=== PATIENT | male | born 1945 | race Caucasian/White ===

== ENCOUNTER 2018-02-03 10:13 | Day surgery (SDC) | payer MEDICARE ==
[~2018-02-03 10:13] MED LIST: Buffered Lidocaine 0.9% SYRIN* 5 ML/SYR SYRINGE INTRADERM ONE
[2018-02-03] MEDS ORDERED: ceFAZolin 2 GM PREMIX (*) 2 GM/50 ML BAG IVPB ONE (10:41)
[2018-02-03] MEDS ORDERED: Bupivacaine 0.5% SDV PF* 30ML VIAL ONE (14:24)
[2018-02-03] MEDS ORDERED: Lidocaine 1% MPF wEPI 200,000* 30 ML SDV ONE (14:24)
[2018-02-03] MEDS ORDERED: fentaNYL* 50 MCG/ML 2 ML VIAL (100 MCG VIAL) ONE (14:55)
[2018-02-03] MEDS ORDERED: Midazolam* 1 MG/ML 5 ML VIAL (5 MG) ONE (14:56)
[2018-02-03] MEDS ORDERED: Naloxone* 0.4 MG/ML 1 ML VIAL IV PRN (15:13)
[2018-02-03] MEDS ORDERED: oxyCODONE TAB* 5 MG TAB PO PRN (15:13)
[2018-02-03] MEDS ORDERED: Acetaminophen TAB* 325 MG PO PRN (15:13)
[2018-02-03] MEDS ORDERED: Propofol* 10 MG/ML 20 ML BTL IV PUSH ONE (15:17)
[2018-02-03] MEDS ORDERED: Ibuprofen TAB* 400 MG PO PRN (15:57)
[2018-02-03 16:53] VITALS: BP 150/83
--- NOTE | 2018-02-05 21:46 | OP ---
CC: Galina Seay MD * DATE OF OPERATION: 02/03/18 - SDS DATE OF : 45 SURGEON: Ricardo Palafox MD HAND CANDY DIPPER: CHIKA Lay student. ANESTHESIOLOGIST: Kash Anthony MD ANESTHESIA: Local MAC. PRE-OP DIAGNOSIS: Right inguinal hernia. POST-OP DIAGNOSIS: Right inguinal hernia. OPERATIVE PROCEDURE: Open repair, right inguinal hernia with mesh. ESTIMATED BLOOD LOSS: Minimal. IV FLUIDS: Crystalloids. SPECIMEN: None. DRAINS: None. COMPLICATIONS: None. COUNTS: The instrument, needle, and sponge counts were correct. DESCRIPTION OF PROCEDURE: The patient was brought to the operating room and placed on the table supine. Sequential compression devices were placed on both lower extremities. Intravenous sedation was administered. His right groin was prepped and draped in the usual sterile fashion and a time-out was performed. Local anesthetic was infiltrated as a field block in the right groin and an oblique incision was created approximately 5-cm long. Subcutaneous tissues were divided with cautery, crossing veins were divided between clamps and ligated with absorbable ties. External oblique aponeurosis was identified and additional anesthetic infiltrated beneath this. The aponeurosis was opened along the line of its fibers through the superficial ring. The external oblique aponeurosis was reflected back upon itself and the underlying ilioinguinal nerve was identified and mobilized and preserved in a medial direction. The contents of the inguinal canal were isolated with a quarter- inch Mayur drain at the level of the pubic tubercle. There was a large lipoma of the cord as well as indirect inguinal hernia sac identified. The lipoma on the cord was dissected free. It was transected after clamping and then ligated with 2-0 suture ligature. The cord was dissected free from the sac. The sac was twisted upon itself, ligated with 2-0 Vicryl suture ligature, and allowed to retract beneath the deep ring. The repair was then performed with the Medtronic ProGrip mesh for the open right inguinal hernia. The mesh was cut to an appropriate size and placed to cover the entire floor of the canal with the locking strips positioned loosely around the cord structures. Subsequently, the ilioinguinal nerve was returned to its anatomic position and the external oblique aponeurosis was then closed with 2-0 Vicryl. Herson's was closed with 3-0 Vicryl in interrupted fashion. The skin was closed with 4-0 Monocryl in a running subcuticular fashion. The Steri-Strips and dressing were applied. The patient tolerated this procedure well and was transferred to Recovery in stable condition. [id number]/[facility] #: [id number] MTDD
== END 2018-02-03 17:06 | disposition home or self-care (01) ==
LOC: OR 10:13
PROVIDERS: ATTEND Surgery
DX: K40.90 Unilateral inguinal hernia, without obstruction or gangrene, not specified as recurrent (principal); J45.909 Unspecified asthma, uncomplicated; Z85.46 Personal history of malignant neoplasm of prostate; K21.9 Gastro-esophageal reflux disease without esophagitis; F41.9 Anxiety disorder, unspecified; Z87.891 Personal history of nicotine dependence
CPT/HCPCS: C1781; J0690; J2001; J2250; J2704; J3010

== ENCOUNTER → 2018-05-18 19:36 | Emergency (ER) | payer MEDICARE ==
[~2018-05-18 19:36] MED LIST changes: -Buffered Lidocaine 0.9% SYRIN* 5 ML/SYR SYRINGE INTRADERM ONE; +LORazepam INJ* 2 MG/ML 1 ML VIAL IV PUSH ONE; +Labetalol IV* 5 MG/ML 20 ML VIAL IV PUSH ONE
--- OUTSIDE RECORDS SUMMARY | 2018-05-18 19:51 | XMS REPORT ---
:1945 External Reference #:[id number] Author Organization [facility] Address [address] [place] [address] [place] [address] Phone [phone] Care Team Providers Name Role Phone Hima Medeiros MD Care Team Information Clay Temperer Unavailable Galina Seay MD Primary Care Physician Unavailable Payers Type Date Identification Numbers Payment Provider Subscriber Medicare Primary Policy Number: [id number] Medicare Sung Thompson PayID: [id number] [address] [place] [address] [facility] Policy Number: [id number] [facility] Sung Thompson PayID: [id number] [address] [place] [address] Problems Description No Information Family History Date Family Member(s) Problem(s) Comments First Sister Chronic Obstructive Pulmonary Disease (COPD) Smoker Social History Type Date Description Comments Marital Status Lives With Lives With 1 cat Occupation 1999 Retired Occupation [employer] Cigarette Use Former Cigarette Smoker Cigarette Use Former cigar smoker 2-3 per day. 10 years ETOH Use Denies alcohol use Smoking Patient is a former smoker Recreational Drug Use Denies Drug Use Smoking Secondhand smoke exposure As a child Daily Caffeine Decaff coffee 3-4x per week Daily Caffeine consumes chocolate occasionally Exercise Type/Frequency Exercises regularly Exercise Type/Frequency Walks daily Allergies, Adverse Reactions, Alerts Date Description Reaction Status Severity Comments 01/27/2018 Penicillin active hives 01/27/2018 Codeine active hyperactivity 01/27/2018 Prednisone active irritability and anger 01/27/2018 Flovent active hyperactivity 02/18/2018 Steroids Nervous and mind active Per pt, 2 different racing reactions Medications Medication Date Status Form Strength Qnty SIG Indications Ordering Provider Daxlukast // Active Tablets 10mg 1 by mouth Unknown Sodium 0000 every day Proair / Active Aerosol 108(90Bas 2 puffs by Unknown Respiclick 0000 e) mouth every mcg/Act 4-6 hours as needed Gabapentin / Active Capsules 100mg 1 capsule Unknown 0000 by mouth at night Vitamin D3 / Active Tablets 1000Unit 1 by mouth Unknown 0000 every day Sertraline HCL / Active Tablets 100mg 1 by mouth Unknown 0000 every day Multivitamin / Active Tablets 1 by mouth Unknown Adults 0000 every day Vitamin C / Active Tablets 500mg 1 by mouth Unknown 0000 every day Fish Oil Extra / Active Capsules 1200mg daily Unknown Strength 0000 Stool Softener / Active Tablets 100mg take one Unknown 0000 tab by mouth as needed Metamucil Free & / Active Powder 43% 1 Unknown Natural 0000 tablespoon twice a day mixed w/ water Hydrocortisone / Active Ointment 0.2% apply to Unknown Valerate 0000 affected area(s) once daily as needed Pantoprazole / Active Tablets DR 40mg 1 by mouth Unknown Sodium 0000 two times day Simvastatin / Active Tablets 20mg 1 by mouth Blegen, 0000 one time Galina, per day Nystatin / Active Cream [id number] Apply Blegen, 0000 t/GM topically Galina, as needed Econazole / Active Cream 1% topical Unknown Nitrate 0000 twice a day as needed Spiriva Respimat / Active Aerosol 1.25mcg/A daily Unknown [address] ct Spiriva Respimat / Hx Aerosol 1.25mcg/A once daily Unknown 0000 - ct 2017 Vital Signs Date Vital Result Comment 04/20/2018 Height 69.5 inches 5'9.50" Weight 182.00 lb Heart Rate 62 /min BP Systolic Sitting 144 mmHg BP Diastolic Sitting 84 mmHg Respiratory Rate 18 /min O2 % BldC Oximetry 97 % on Ra BMI (Body Mass Index) 26.5 kg/m2 02/18/2018 Height 69.5 inches 5'9.50" Weight 177.38 lb Heart Rate 64 /min BP Systolic Sitting 154 mmHg Lue reg cuff BP Diastolic Sitting 78 mmHg Lue reg cuff Respiratory Rate 14 /min O2 % BldC Oximetry 97 % On Ra BMI (Body Mass Index) 25.8 kg/m2 Neck Circumference in inches 15.5 02/11/2018 Heart Rate 62 /min Respiratory Rate 16 /min Body Temperature 97.0 F 01/29/2018 Height 69.5 inches 5'9.50" Weight 180.00 lb Heart Rate 54 /min BP Systolic Sitting 142 mmHg BP Diastolic Sitting 80 mmHg Respiratory Rate 16 /min Body Temperature 97.8 F BMI (Body Mass Index) 26.2 kg/m2 Results Description No Information Procedures Date CPT Code Description Status 04/02/2018 63141 Diffusing Capacity Completed 04/02/2018 99863 Plethysmography Determination Lung Volumes & Per Airway Completed Resist 04/02/2018 79115 Pulmonary Function><Bronchodil Completed 02/03/2018 32802 Repair Hernia Inguinal > 5Yrs, Reducible Completed 05/14/2007 36352 EKG, Interpretation Only Completed Encounters Type Date Location Provider CPT E/M Dx Office Visit 04/20/2018 8:30a [facility] Viktoriya Lewis, N.P. [address] R05 [facility] Office Visit 02/18/2018 11:00a [facility] [place] [address] R[facility] J98.4 Office Visit 01/29/2018 11:00a [facility] [place], [address] K40.90 [facility] FACS Office Visit 08/29/2014 10:21a [facility], Ashleigh Brandt, [address] 578.9 Hospitalists M.D. 272.4 530.81 285.1 Office Visit 08/28/2014 10:21a [facility],stephani Brandt, [address] 578.9 Hospitalists M.D. 272.4 530.81 285.1 Office Visit 08/27/2014 10:20a [facility],stephani Brandt, 618[address] 578.9 Hospitalists M.D. 272.4 285.1 530.81 Office Visit 08/26/2014 10:19a [facility], [address] 578.9 Assoc, Hospitalists M.DAyush 272.4 530.81 Plan of Care Future Appointment(s):10/21/2018 9:00 am - Evelyn Altamirano MD at [facility]04/20/2018 - Viktoriya Lewis, N.P.R05 CoughFollow up:6 mo f/u LKRecommendations:Try Bevespi - samples given. STOP Spiriva Call in 2 weeks if it makes a difference
--- NOTE | 2018-05-18 21:10 | ED ---
Hypertension - HPI Summary HPI Summary: A 73 y/o male FRANCISCO presents to ED c/o hypertension. In the ED room, the patient has a pulse of 67 BPM, O2 saturation of 97% and blood pressure of 192/86. As per triage, "Pt reports he noticed his BP getting "higher and higher today." Pt denies any symptoms. Pt reports he was told by his PCP to keep track of his BP, since it had been steadily rising over the last year, and when he took it today , "the top number was over 180 and the bottom number was over 100, so my called the ambulance". According to the patient, last year he has been experiencing high blood pressure between 135-140 systolic for a very long time in which he sees his PCP in [place], [place]. His PCP recommended that the patient watch his BP, however, for the past 3-weeks he has not been checking as frequently/often. He noted that after lunch today, it was approximately 160/90 ( with it being peaking around 189/120) which he has never seen before. He denies any headache, CP, nausea, vomiting or ear pain. Patient is on several medicatinos. Patient is otherwise healthy, everything is going good in his life. Patient lives with . Patient son and [id number] resides nearby. - History of Current Complaint Stated Complaint: HIGH BLOOD PRESSURE Time Seen by Provider: 05/18/18 20:17 Hx Obtained From: Patient Onset/Duration: Started Hours Ago, Still Present Timing: Constant Aggravating Factor(s): Nothing Alleviating Factor(s): Nothing Associated Signs & Symptoms: Negative - Allergies/Home Medications Allergies/Adverse Reactions: Allergies Allergy/AdvReac Type Severity Reaction Status Date / Time codeine Allergy Insomnia Verified 05/18/18 20:23 Penicillins Allergy Rash Verified 05/18/18 20:23 "anti-nausea med" Allergy See Comment Uncoded 05/18/18 20:23 "steroid inhaler" Allergy See Comment Uncoded 05/18/18 20:23 steriods Allergy See Comment Uncoded 05/18/18 20:23 PMH/Surg Hx/FS Hx/Imm Hx Endocrine/Hematology History: Denies: Hx Diabetes Cardiovascular History: Reports: Hx Hypercholesterolemia, Hx Hypertension - being monitored by PCP, no meds yet, Other Cardiovascular Problems/Disorders - hypercholesterolemia Denies: Hx Pacemaker/ICD Respiratory History: Reports: Hx Asthma, Other Respiratory Problems/Disorders - pneumonia 1.5 yrs ago GI History: Reports: Hx Gastroesophageal Reflux Disease, Other GI Disorders - hx duodenal polyp removed, hx gi bleed, current inguinal hernia History: Reports: Other Problems/Disorders - prostate cancer Denies: Hx Dialysis, Hx Renal Disease Musculoskeletal History: Reports: Hx Arthritis - hands Sensory History: Reports: Hx Contacts or Glasses - glasses Denies: Hx Hearing Aid Opthamlomology History: Reports: Hx Contacts or Glasses - glasses Neurological History: Reports: 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 prostatectomy 2006 - [facility] [place]. drained abscess in throat [place] in [employer] - [facility] Anesthesia Reactions: No - Immunization History Date of Influenza Vaccine: 05/2016 Immunizations Up to Date: Yes Infectious Disease History: No Infectious Disease History: Denies: Traveled Outside the [place] in Last 30 Days - Family History Known Family History: Negative: Respiratory Disease - Social History Alcohol Use: None Substance Use Type: Reports: None Hx Tobacco Use: Yes Smoking Status (MU): Former Smoker Type: Cigars Amount Used/How Often: 3 cigars per day for 10 years Review of Systems Negative: Fever Negative: Ear Ache Positive: Other - POSITIVE: HTN. Negative: Chest Pain Negative: Vomiting, Nausea Negative: Headache All Other Systems Reviewed And Are Negative: Yes Physical Exam - Summary Physical Exam Summary: VITAL SIGNS: Reviewed. GENERAL: Patient is a well-developed and nourished male who is lying comfortable in the stretcher. Patient is not in any acute respiratory distress. Normal exam. HEAD AND FACE: No signs of trauma. No ecchymosis, hematomas or skull depressions. No sinus tenderness. EYES: PERRLA, EOMI x 2, No injected conjunctiva, no nystagmus. EARS: Hearing grossly intact. Ear canals and tympanic membranes are within normal limits. MOUTH: Oropharynx within normal limits. NECK: Supple, trachea is midline, no adenopathy, no JVD, no carotid bruit, no c- spine tenderness, neck with full ROM. CHEST: Symmetric, no tenderness at palpation LUNGS: Clear to auscultation bilaterally. No wheezing or crackles. CVS: Regular rate and rhythm, S1 and S2 present, no murmurs or gallops appreciated. ABDOMEN: Soft, non-tender. No signs of distention. No rebound no guarding, and no masses palpated. Bowel sounds are normal. EXTREMITIES: FROM in all major joints, no edema, no cyanosis or clubbing. NEURO: Alert and oriented x 3. No acute neurological deficits. Speech is normal and follows commands. SKIN: Dry and warm Triage Information Reviewed: Yes Vital Signs On Initial Exam: Initial Vitals Pulse Resp BP Pulse Ox 66 18 194/82 98 05/18/18 20:15 05/18/18 20:15 05/18/18 20:15 05/18/18 20:15 Vital Signs Reviewed: Yes Diagnostics - Vital Signs Vital Signs Temp Pulse Resp BP Pulse Ox 05/18/18 20:45 66 18 153/78 97 05/18/18 20:42 16 05/18/18 20:19 98.0 F 65 16 192/86 98 05/18/18 20:15 66 18 194/82 98 - Laboratory Result Diagrams: 05/18/18 21:19 05/18/18 21:19 Lab Statement: Any lab studies that have been ordered have been reviewed, and results considered in the medical decision making process. Hypertension Course/Dx - Course Course Of Treatment: A 73 y/o male FRANCISCO presents to ED c/o hypertension. In the ED room, the patient has a pulse of 67 BPM, O2 saturation of 97% and blood pressure of 192/86. Blood work was done. In the ED course, the patient recieved Trandate and Ativan. Patient will be discharged with a diagnosis of hypertension. Patient will be sent home with Lisinopril. Patient is to follow up with PCP in 1-2 days. Patient is agreeable with this plan. - Diagnoses Provider Diagnoses: HTN (hypertension) Discharge - Sign-Out/Discharge Documenting (check all that apply): Patient Departure - DISCHARGE - Discharge Plan Condition: Stable Disposition: HOME Prescriptions: Lisinopril 5 mg PO DAILY #30 tablet Patient Education Materials: Hypertension (ED) Referrals: Galina Seay MD [Primary Care Provider] - 2 Days Additional Instructions: FOLLOW UP WITH PRIMARY CARE PHYSICIAN IN 1-2 DAYS. TAKE MEDICATION PRESCRIBED. RETURN TO ED FOR ANY NEW OR WORSENING SYMPTOMS. - Attestation Statements Document Initiated by Scribe: Yes Documenting Scribe: Ralph Santana Provider For Whom Scribe is Documenting (Include Credential): Sowmya Suresh MD Scribe Attestation: Ralph Perez, scribed for Sowmya Suresh MD on 05/18/18 at 0302.
[2018-05-18 21:31] LABS: ABS Basophils 0 10^3/ul (0-0.2); ABS Eosinophils 0 10^3/ul (0-0.6); ABS Lymphocytes 0.6 10^3/ul (1.0-4.8); ABS Monocytes 0.5 10^3/ul (0-0.8); ABS Neutrophils 4.5 10^3/ul (1.5-7.7); ABS Nucleated RBC 0 10^3/ul; Eosinophil % 0.4 % (0-6); Hematocrit 38 % (42-52); Hemoglobin 13.4 g/dl (14.0-18.0); Lymphocyte % 11.4 % (25-47); Mean Corpuscular HGB Conc 35 g/dl (31-36); Mean Corpuscular Hemoglobin 31 pg (27-31); Mean Corpuscular Volume 87 fL (80-94); Mean Platelet Volume 8.5 um3 (7.4-10.4); Nucleated Red Blood Cells % 0; Platelet Count 164 10^3/ul (150-450); Red Blood Count 4.35 10^6/ul (4.00-5.40); Red Cell Distribution Width 14 % (10.5-15); White Blood Count 5.6 10^3/ul (3.5-10.8)
[2018-05-18 21:48] LABS: EGFR Non-African American 88.4 (>60)
[2018-05-18 22:14] VITALS: BP 149/78
== END | disposition home or self-care (01) ==
LOC: ED 19:36
DX: I10 Essential (primary) hypertension (principal); Z87.891 Personal history of nicotine dependence; Z88.5 Allergy status to narcotic agent; Z88.2 Allergy status to sulfonamides; Z88.8 Allergy status to other drugs, medicaments and biological substances
CPT/HCPCS: 36415; 80053; 84439; 84443; 85025; 96374; 96375; 99283; J2060

== ENCOUNTER 2018-09-14 20:09 | Observation (INO) | payer MEDICARE ==
[2018-09-14] MEDS ORDERED: Labetalol IV* 5 MG/ML 20 ML VIAL IV PUSH ONE (20:31)
--- NOTE | 2018-09-14 20:37 | ED ---
Hypertension - HPI Summary HPI Summary: This patient is a 73 year old M brought in by EMS presenting to [facility] accompanied by his with a chief complaint of hypertension one hour [employer]. The patient states he felt dizzy so he checked his blood pressure and he had a high systolic. He told his , who states he was acting spaceyand they called EMS. When in the patient room the he had difficulty speaking to the nurse , however when the ED Provider came in he improved and was speaking normally. He states he sometimes has difficulty expressing he thoughts but did not feel that way during the visit, and that he was only dizzy. The patient states he has no other cardiac Hx besides HTN. He has a Hx of prostate and throat cancer. - History of Current Complaint Stated Complaint: HIGH BLOOD PRESSURE Time Seen by Provider: 09/14/18 20:12 Hx Obtained From: Patient Onset/Duration: Started Hours Ago Associated Signs & Symptoms: Dizziness - Risk Factors Cardiac Risk Factors: Hypertension, Family History - Allergies/Home Medications Allergies/Adverse Reactions: Allergies Allergy/AdvReac Type Severity Reaction Status Date / Time codeine Allergy Insomnia Verified 05/18/18 20:23 Penicillins Allergy Rash Verified 05/18/18 20:23 "anti-nausea med" Allergy See Comment Uncoded 05/18/18 20:23 "steroid inhaler" Allergy See Comment Uncoded 05/18/18 20:23 steriods Allergy See Comment Uncoded 05/18/18 20:23 Home Medications: Home Medications Cholecalciferol (Vitamin D3) [Vitamin D3] 1,000 unit PO DAILY 09/14/18 [History Confirmed 09/14/18] Montelukast Sodium TAB* [Singulair TAB*] 10 mg PO DAILY 09/14/18 [History Confirmed 09/14/18] Psyllium KINSEY* [Metamucil KINSEY*] 1 pkt PO DAILY 09/14/18 [History Confirmed ] PMH/Surg Hx/FS Hx/Imm Hx Endocrine/Hematology History: Denies: Hx Diabetes Cardiovascular History: Reports: Hx Hypercholesterolemia, Hx Hypertension - being monitored by PCP, no meds yet, Other Cardiovascular Problems/Disorders - hypercholesterolemia Denies: Hx Pacemaker/ICD Respiratory History: Reports: Hx Asthma, Other Respiratory Problems/Disorders - pneumonia 1.5 yrs ago GI History: Reports: Hx Gastroesophageal Reflux Disease, Other GI Disorders - hx duodenal polyp removed, hx gi bleed, current inguinal hernia History: Reports: Other Problems/Disorders - prostate cancer Denies: Hx Dialysis, Hx Renal Disease Musculoskeletal History: Reports: Hx Arthritis - hands Sensory History: Reports: Hx Contacts or Glasses - glasses Denies: Hx Hearing Aid Opthamlomology History: Reports: Hx Contacts or Glasses - glasses Neurological History: Reports: 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 prostatectomy 2006 - [facility] [place]. drained abscess in throat while in [employer] [place] Hx Anesthesia Reactions: No - Immunization History Date of Influenza Vaccine: 05/2016 Infectious Disease History: No Infectious Disease History: Denies: Traveled Outside the US in Last 30 Days - Family History Known Family History: Positive: Cardiac Disease Negative: Respiratory Disease - Social History Alcohol Use: None Substance Use Type: Reports: None Hx Tobacco Use: Yes Smoking Status (MU): Former Smoker Type: Cigars Amount Used/How Often: 3 cigars per day for 10 years Review of Systems Negative: Fever Positive: Other - HTN Neurological: Other - Dizziness All Other Systems Reviewed And Are Negative: Yes Physical Exam - Summary Physical Exam Summary: VITAL SIGNS: Reviewed. GENERAL: Patient is a well-developed and nourished MALE who is lying comfortable in the stretcher. Patient is not in any acute respiratory distress. HEAD AND FACE: No signs of trauma. No ecchymosis, hematomas or skull depressions. No sinus tenderness. EYES: PERRLA, EOMI x 2, No injected conjunctiva, no nystagmus. EARS: Hearing grossly intact. Ear canals and tympanic membranes are within normal limits. MOUTH: Oropharynx within normal limits. NECK: Supple, trachea is midline, no adenopathy, no JVD, no carotid bruit, no c- spine tenderness, neck with full ROM. CHEST: Symmetric, no tenderness at palpation LUNGS: Clear to auscultation bilaterally. No wheezing or crackles. CVS: Regular rate and rhythm, S1 and S2 present, no murmurs or gallops appreciated. ABDOMEN: Soft, non-tender. No signs of distention. No rebound no guarding, and no masses palpated. Bowel sounds are normal. EXTREMITIES: FROM in all major joints, no edema, no cyanosis or clubbing. NEURO: Alert and oriented x 3. No acute neurological deficits. Speech is normal and follows commands. SKIN: Dry and warm Triage Information Reviewed: Yes Vital Signs On Initial Exam: Initial Vitals Temp Pulse Resp BP Pulse Ox 98.3 F 78 18 201/88 98 09/14/18 20:11 09/14/18 20:11 09/14/18 20:11 09/14/18 20:11 09/14/18 20:11 Vital Signs Reviewed: Yes Diagnostics - Vital Signs Vital Signs Temp Pulse Resp BP Pulse Ox 09/14/18 20:11 98.3 F 78 18 201/88 98 - Laboratory Result Diagrams: 09/14/18 20:36 09/14/18 20:36 Lab Statement: Any lab studies that have been ordered have been reviewed, and results considered in the medical decision making process. - Radiology CXR Radiology Interpretation Completed By: ED Physician Summary of Radiographic Findings: No acute process. Awaiting official radiologist report. - CT Brain CT CT Interpretation Completed By: Radiologist Summary of CT Findings: No acute intracranial abnormality. No interval change. ED provider has reviewed this report. - EKG 2041 Cardiac Rate: NL EKG Rhythm: Sinus Rhythm Summary of EKG Findings: IVCD, no ischemic changes. Hypertension Course/Dx - Course Assessment/Plan: This patient is a 73 year old M brought in by EMS presenting to [facility] accompanied by his with a chief complaint of hypertension and dizziness one hour [employer]. Patient has been hypertensive throughout the visit with a systolic above 200. Brain CT and Physical Exam were unremarkable for neurological problems, and chest XRay was unremarkable for other cardiopulmonary problems. He will be admitted. Dr. Oneill, Hospitalist, accepted the patient to be admitted at 21:20. This plan was discussed with the patient and he was agreeable with this plan. - Diagnoses Provider Diagnoses: TIA (transient ischemic attack), Hypertension - Physician Notifications Discussed Care Of Patient With: Nicolas Oneill - Hospitalist Time Discussed With Above Provider: 21:20 Instructed by Provider To: Admit As Inpatient Discharge - Sign-Out/Discharge Documenting (check all that apply): Patient Departure - Discharge Plan Condition: Stable Disposition: ADMITTED TO [facility] Referrals: Galina Seay MD [Primary Care Provider] - - Billing Disposition and Condition Condition: STABLE Disposition: Admitted to [facility] - Attestation Statements Document Initiated by Malaikae: Yes Documenting Scribe: Elvin Sanchez Provider For Whom Farhad is Documenting (Include Credential): Sowmya Suresh MD Scribe Attestation: Elvin Perez, scribed for Sowmya Suresh MD on 09/15/18 at 0120. Scribe Documentation Reviewed: Yes Provider Attestation: The documentation as recorded by the Elvin mccullough accurately reflects the service I personally performed and the decisions made by Robin robb MD Status of Scribe Document: Viewed
[2018-09-14 20:44] LABS: ABS Basophils 0 10^3/ul (0-0.2); ABS Eosinophils 0.1 10^3/ul (0-0.6); ABS Lymphocytes 0.9 10^3/ul (1.0-4.8); ABS Monocytes 0.6 10^3/ul (0-0.8); ABS Neutrophils 3.9 10^3/ul (1.5-7.7); ABS Nucleated RBC 0 10^3/ul; Eosinophil % 1.1 %; Hematocrit 37 % (42-52); Hemoglobin 12.9 g/dl (14.0-18.0); Lymphocyte % 17.2 %; Mean Corpuscular HGB Conc 35 g/dl (31-36); Mean Corpuscular Hemoglobin 31 pg (27-31); Mean Corpuscular Volume 89 fL (80-94); Mean Platelet Volume 8.2 fL (7.4-10.4); Nucleated Red Blood Cells % 0; Platelet Count 161 10^3/ul (150-450); Red Blood Count 4.18 10^6/ul (4.00-5.40); Red Cell Distribution Width 13 % (10.5-15); White Blood Count 5.5 10^3/ul (3.5-10.8)
[2018-09-14 20:53] LABS: Activated Partial Thrombo Time 35.3 seconds (26.0-36.3); INR 0.93 (0.77-1.02)
[2018-09-14 21:01] LABS: Albumin 4.7 g/dL (3.2-5.2); Albumin/Globulin Ratio 2.8 (1-3); BUN/Creatinine Ratio 17.4 (8-20); Calcium 9.5 mg/dL (8.6-10.3); EGFR Non-African American 80.6 (>60); Globulin 1.7 g/dL (2-4); Total Bilirubin 0.5 mg/dL (0.2-1.0); Total Protein 6.4 g/dL (6.4-8.9)
[2018-09-14] MEDS ORDERED: Aspirin TAB* 325 MG PO ONE (21:18)
[2018-09-14] MEDS ORDERED: Iohexol 350* (CONTRAST) 500 ML MDV IV ONE (22:47)
[2018-09-14] MEDS ORDERED: Acetaminophen TAB* 325 MG PO PRN (22:47)
[2018-09-14] MEDS ORDERED: Albuterol HFA INHALER* 8 gm MDI INH PRN (22:56)
[2018-09-14] MEDS ORDERED: SIMVASTATIN PO SCH (23:00)
[2018-09-15] MEDS: Heparin VIAL(*) 5000 UNITS/ML VIAL (FIVE THOUSAND) SUBCUT SCH ×4 (03:13→21:03)
--- NOTE | 2018-09-15 04:38 | HP ---
CC: Dr. Galina Seay * HISTORY AND PHYSICAL: DATE OF ADMISSION: 09/14/18 PRIMARY CARE PROVIDER: Dr. Galina Seay. PROVIDER: Jennifer Main NP ATTENDING PHYSICIAN WHILE IN THE HOSPITAL: Dr. Nicolas Oneill * (dictated by Jennifer Main NP). CHIEF COMPLAINT: 1. Hypertension. 2. Expressive aphasia. HISTORY OF PRESENT ILLNESS: Mr. Thompson is a 73-year-old gentleman with a past medical history significant for hypertension; hyperlipidemia; anxiety; asthma; history of prostate cancer; history of throat and tongue cancer, status post chemo and radiation; duodenal polyp, which was benign, who presented to the emergency room with complaints of hypertension. He reports that he was at home. He took his blood pressure, was 184/84 and had a heart rate of 130. He felt like his mind was racing and he felt jittery. He states that they kept thinking about the same things in different ways. Denied any dizziness, weakness. Denied any visual changes. Denied any headache or loss of consciousness. Due to the hypertension and high heart rate, his called EMS and was brought to the emergency room for further evaluation. While in the emergency room, the patient had an episode of expressive aphasia. He states that he was thinking of the words, but was having difficulty saying them. He says that the episode lasted approximately 10 minutes and then resolved fully. Due to the concern of hypertension and episode of expressive aphasia, we were asked to see and evaluate him for admission. During his admission, he had another episode of expressive aphasia, his words were garbled that lasted approximately 2 to 3 minutes and then resolved fully. The patient again reported that he felt like his mind was racing and he was unable get the words out, but knew what he wanted to say. Neurology was contacted by this rewriter and we ordered a stat CTA of the head and neck for further evaluation to rule out occlusion. PAST MEDICAL HISTORY: 1. Hypertension. 2. Hyperlipidemia. 3. Anxiety. 4. Asthma. 5. History of prostate cancer. 6. History of throat and tongue cancer, status post chemo and radiation. 7. History of duodenal polyps, which were benign. PAST SURGICAL HISTORY: 1. Prostatomy. 2. Tonsillectomy. 3. Duodenal polyp removal. 4. Hernia repair. HOME MEDICATIONS: Include: 1. Sertraline 100 mg p.o. daily. 2. Simvastatin 10 mg p.o. daily. 3. Spiriva 1 puff daily. 4. Singulair 10 mg p.o. daily. 5. Gabapentin 100 mg p.o. q.p.m. 6. Vitamin D3 1000 units p.o. daily. 7. Fish oil 1200 mg p.o. daily. 8. Pantoprazole 40 mg p.o. daily. 9. Vitamin C. 10. Stool softener. 11. Lisinopril 5 mg p.o. daily. 12. Multivitamin 1 tablet p.o. daily. 13. Ascorbic acid 500 mg p.o. q.p.m. 14. Albuterol HFA inhaler 1 puff q.4 hours as needed for shortness of breath. 15. Metamucil 1 pack p.o. daily. ALLERGIES: Allergic to CODEINE, PENICILLINS, and STEROIDS. FAMILY HISTORY: Father with a history of AAA, passed in his 70s. Sister with history of CHF. No reported diabetes. Mother and sister both with breast cancer history. SOCIAL HISTORY: The patient used to be a heavy smoker. He quit approximately 40 years ago, prior to that he smoked heavily for 10 years. He does report heavy alcohol use, but quit over 30 years ago and has not had any alcohol since. Denies any illicit drug use. 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 Surrogate decision maker in the event he is unable to make his own decisions is . He is full code. REVIEW OF SYSTEMS: There has been no documented fever. No unintended weight loss. No chest pain, edema, cough, hemoptysis, or shortness of breath. Denies any nausea, vomiting, diarrhea, or abdominal pain. Denies any gross hematuria or dysuria. Denies any focal weakness or sensory loss. Denies any visual complaints, dizziness, loss of consciousness, or weakness. 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 He reports that this is at his baseline. No change in swallowing. Denies any arthralgias, myalgias, rashes or lesions, psychosis or anxiety. The patient does report episodes of mind racing and expressive aphasia. PHYSICAL EXAMINATION GENERAL: At this time, Ms. Thompson is a 73-year-old male. He is resting comfortably on the stretcher in the emergency room. He is alert and oriented x3. His speech is clear and articulate at this time. VITAL SIGNS: Blood pressure 151/75, heart rate 70, respirations 14, temperature on admission 98.3, O2 saturation 96%. HEENT: Head is atraumatic and normocephalic. Eyes: EOMs are intact. Sclerae are anicteric and not pale. Oral mucosa appeared to be moist. NECK: Supple. LUNGS: Lungs are clear to auscultation bilaterally. No wheezes, rales, or rhonchi. CARDIAC: S1, S2. Regular rate and rhythm. No murmurs, rubs, or gallops. ABDOMEN: Soft and nontender. Bowel sounds are present x4. EXTREMITIES: He is able to move all 4 extremities with 5/5 strength. Sensation is intact to upper and lower extremities. NEUROLOGIC: He is awake, alert, and oriented x3. Hand barrel header are equal. Tongue is midline. Smile is equal. [id number] is intact. No pronator drift is noted. Shoulder shrug is intact. No facial asymmetry is noted. Sensation is intact equally to bilateral upper and lower extremities. No leg weakness is noted. He did have a 2- to 3-minute episode during this evaluation of expressive aphasia, garbled speech, which fully resolved during the evaluation. SKIN: Intact. DIAGNOSTIC STUDIES/LAB DATA: WBCs are 5.5, RBCs 4.18, hemoglobin 12.9, hematocrit 37, platelet count 161. INR was 0.93. Sodium 128, potassium 4.0, chloride 95, carbon dioxide was 27, anion gap was 6, BUN was 16, creatinine 0.92 , glucose was 120, calcium 9.5, magnesium 2.0. Total bilirubin was 0.05, AST were 20, ALTs were 17, alkaline phosphatase was 64. He had a CT of the brain. No acute intracranial abnormality, no interval changes. He had an electrocardiogram, which showed a sinus rhythm at rate of 69. He had a chest x-ray, but does not show any acute changes. CTA of the head and neck is currently pending. ASSESSMENT AND BURRIS: Mr. Thompson is a 73-year-old male with a past medical history significant for hypertension, hyperlipidemia, who presented to the emergency room with hypertension and an episode of expressive aphasia while in the emergency room. He will be admitted under observation for: 1. Hypertension. The patient did have an episode of hypertension in the emergency room, blood pressure was as high as 201/88. He did receive labetalol in the emergency room. While in the emergency room, he had 2 episodes of expressive aphasia, which completely resolved. No other neurological deficits were noted. Neurology was consulted and recommended keeping blood pressure below 220 due to the concern of transient ischemic attack. We will get a CTA of the head and neck, which is currently pending. He has a CTA of the brain, which was negative. He did receive aspirin 324 mg in the emergency room. We will continue him on aspirin 81 mg p.o. daily. I will continue his lisinopril to keep his blood pressure below 220. We will allow permissive hypertension to promote circulation. 2. Expressive aphasia. I expect this could be related to transient ischemic attack. We will get CTA of the head and neck and we will get transthoracic echocardiogram with bubble study. We will get an MRI in the a.m. I have also consulted Neurology, who recommends keeping blood pressure less than 220 for allow for permissive hypertension. He will be continued on a statin therapy, simvastatin 10 mg p.o. daily. Neurology will see the patient in the morning. I will also get neuro checks q.2 hours and he will be monitored on telemetry overnight. He will have a swallow evaluation bedside and dysphagia screen done by Speech Therapy tomorrow. 3. Hyperlipidemia. We will continue his simvastatin at 10 mg p.o. daily. 4. Anxiety and depression. He will continue on sertraline 100 mg p.o. daily. 5. Asthma. He will continue on Spiriva and albuterol as needed for shortness of breath. 6. History of duodenal polyps. He will continue on pantoprazole 40 mg p.o. daily. 7. The patient will be n.p.o. until swallow evaluation is completed. 8. DVT prophylaxis. I will place him on heparin subcu. 9. Code status full code. TIME SPENT: Time spent on this admission was 60 minutes, greater than half the time was spent in [id number] with the patient obtaining my history and physical, the other half the time was spent in going over my plan of care and implementing my plan of care. I have discussed with my attending, Dr. Nicolas Oneill; he is in agreement with my plan. JENNIFER MAIN, ENGINEERING MANAGER [id number]/[facility] #: [id number] [facility] HOSPITALAlan
[2018-09-15 07:24] LABS: ABS Basophils 0 10^3/ul (0-0.2); ABS Eosinophils 0 10^3/ul (0-0.6); ABS Lymphocytes 0.7 10^3/ul (1.0-4.8); ABS Monocytes 0.5 10^3/ul (0-0.8); ABS Neutrophils 4.2 10^3/ul (1.5-7.7); ABS Nucleated RBC 0 10^3/ul; Eosinophil % 0.5 %; Hematocrit 37 % (42-52); Hemoglobin 13.1 g/dl (14.0-18.0); Lymphocyte % 13.2 %; Mean Corpuscular HGB Conc 35 g/dl (31-36); Mean Corpuscular Hemoglobin 31 pg (27-31); Mean Corpuscular Volume 89 fL (80-94); Mean Platelet Volume 8.2 fL (7.4-10.4); Nucleated Red Blood Cells % 0; Platelet Count 168 10^3/ul (150-450); Red Cell Distribution Width 13 % (10.5-15); White Blood Count 5.5 10^3/ul (3.5-10.8)
[2018-09-15 07:30] LABS: INR 0.95 (0.77-1.02)
[2018-09-15 07:41] LABS: BUN/Creatinine Ratio 16.9 (8-20); Calcium 8.8 mg/dL (8.6-10.3); EGFR Non-African American 90.8 (>60); HDL Cholesterol 53.6 mg/dL; Potassium 4.1 mmol/L (3.5-5.0)
[2018-09-15] MEDS: Psyllium PAK PO SCH (08:32)
[2018-09-15] MEDS: Pantoprazole TAB * 40 MG TAB PO SCH ×2 (08:33→21:01)
[2018-09-15] MEDS: Lisinopril TAB* 5 MG PO SCH (08:33)
[2018-09-15] MEDS: Montelukast Sodium TAB* 10 MG PO SCH (08:34)
[2018-09-15] MEDS: Aspirin EC TAB* 81 MG TAB.EC PO SCH (08:34)
[2018-09-15] MEDS: Tiotropium CAP.INH* CAP.INH/18 MCG (USE ORDER SET !) INH SCH (08:39)
[2018-09-15] MEDS ORDERED: Spiriva Inhaler DEVICE* 1 EACH DEVICE INH ONE (09:00)
[2018-09-15] MEDS ORDERED: Gadoteridol* (CONTRAST) 279.3 MG/ML 10 ML IV ONE (10:56)
--- NOTE | 2018-09-15 11:35 | ECHO ---
Patient: ERIBERTO DOVE [facility] Rec#: [id number] : 1945 Date: 09/15/2018 Age: 73y Height: 175.3 cm / 69.0 in Weight: 81.6 kg / 179.8 lbs Sex: M BSA: 1.98 Room#: [facility] Admit Date#: 09/15/2018 Type: Inpatient Referring: Jennifer Main Reading: Brad Healy MD [employer] Supervisor: Jaz Galicia RDCS CC: Galina Seay MD Transthoracic Echocardiogram Indication: TIA BP: 149/69 HR: 68 Rhythm: NSR Findings History: HTN, HLD, s/p chemotherapy and radiation for tongue and throat cancer, former smoker, former ETOH. Technical Comments: The study quality is fair. Completed at 0845. Left Ventricle: The left ventricular chamber size is normal. Mild concentric left ventricular hypertrophy is observed. Global left ventricular wall motion and contractility are within normal limits. There is normal left ventricular systolic function. The estimated ejection fraction is 55-60%. There is septal flattening of the interventricular septum consistent with right ventricular volume or pressure overload. There is no consistent Doppler evidence of clinically significant diastolic dysfunction. Left Atrium: The left atrial chamber size is normal. Right Ventricle: Moderator Band present. The right ventricle is mild to moderately dilated. The right ventricle wall thickness is mildly increased. The right ventricular global systolic function is normal. Right Atrium: The right atrial cavity size is normal. Interatrial septum appears intact without evidence of shunting. The bubble study is negative. A patent foramen ovale is not demonstrated with color Doppler and agitated contrast. There is evidence of an atrial septal aneurysm. Aortic Valve: The aortic valve is trileaflet. The aortic valve leaflets are mildly thickened. There is mild to moderate aortic regurgitation. There is no evidence of aortic stenosis. Mitral Valve: The mitral valve leaflets are mildly thickened. There is trace to mild mitral regurgitation. There is no evidence of mitral stenosis. Tricuspid Valve: The tricuspid valve leaflets are normal. There is trace to mild tricuspid regurgitation. The right ventricular systolic pressure is estimated at 21 mmHg. There is evidence that pulmonary hypertension may be underestimated. There is no tricuspid stenosis. Pulmonic Valve: The pulmonic valve appears normal. There is mild pulmonic regurgitation. There is no pulmonic stenosis. Pericardium: There is no significant pericardial effusion. Aorta: There is no dilatation of the ascending aorta. The aortic arch is not well visualized. There is mild dilatation of the aortic root. Pulmonary Artery: The main pulmonary artery appears normal. Venous: The inferior vena cava appears normal in size. There is a greater than 50% respiratory change in the inferior vena cava dimension. Contrast: Intravenous agitated saline contrast was used to assess intracardiac shunting. Images 88 and 89. Summary: There was not any prior study for comparison. Conclusions Global left ventricular wall motion and contractility are within normal limits. There is normal left ventricular systolic function. The estimated ejection fraction is 55-60%. The right ventricle is mild to moderately dilated. The right ventricular global systolic function is normal. A patent foramen ovale is not demonstrated with color Doppler and agitated contrast. There is mild to moderate aortic regurgitation. There is trace to mild mitral regurgitation. There is trace to mild tricuspid regurgitation. The right ventricular systolic pressure is estimated at 21 mmHg. There is evidence that pulmonary hypertension may be underestimated. There is no significant pericardial effusion. Measurements Name Value Normal Range RVIDd (AP) 2D 4.2 cm (0.9 - 2.6) RVDdMajor (2D) 5.1 cm (2.2 - 4.4) RVAW (2D) 0.6 cm (0.2 - 0.5) RAd ISD 4CH 4.5 cm (3.4 - 4.9) RA (A4C)W 3.2 cm (2.9 - 4.6) IVSd (2D) 1.1 cm (0.6 - 1) LVPWd (2D) 1.1 cm (0.6 - 1) LVIDd (2D) 5.1 cm (3.6 - 5.4) LVIDs (2D) 3 cm - LV FS (2D) 40 % (25 - 45) Aortic Annulus 2.5 cm (1.4 - 2.6) Ao root diameter (2D) 3.6 cm (2.1 - 3.5) Ascending Ao 3.1 cm (2.1 - 3.4) LA dimension (AP) 2D 3.8 cm (2.3 - 3.8) LAd ISD 4CH 5.1 cm (2.9 - 5.3) LA ISD 4CH W 4.3 cm (2.5 - 4.5) Name Value Normal Range LA ESV BP (A/L) index 34 ml/m2 - Name Value Normal Range MV E-wave Vmax 1.2 m/sec - MV deceleration time 180 msec - MV A-wave Vmax 0.9 m/sec - MV E:A ratio 1.3 ratio - LV septal e' Vmax 0.08 m/sec - LV lateral e' Vmax 0.08 m/sec - LV E:e' septal ratio 15 ratio - LV E:e' lateral ratio 15 ratio - Name Value Normal Range AV Vmax 1.8 m/sec - AV VTI 33 cm - AV peak gradient 13 mmHg - AV mean gradient 5 mmHg - LVOT Vmax 1.2 m/sec - LVOT VTI 23 cm - LVOT peak gradient 6 mmHg - LVOT mean gradient 3 mmHg - Name Value Normal Range TR Vmax 2.3 m/sec - TR peak gradient 21 mmHg - RAP 3 mmHg - RVSP 21 mmHg - IVC diameter 2 cm - Name Value Normal Range PV Vmax 1.4 m/sec - PV peak gradient 8 mmHg - [place] end-diastolic Vmax 1.4 m/sec - PA end-diastolic pressur7 mmHg -
[2018-09-15] MEDS ORDERED: Gadoteridol* (CONTRAST) 279.3 MG/ML 10 ML IV SCH (12:00)
[2018-09-15] MEDS: Clopidogrel TAB* 75 MG PO SCH (12:02)
--- NOTE | 2018-09-15 12:21 | CONS ---
NEUROLOGY CONSULTATION NOTE: DATE OF CONSULT: 09/15/18 CONSULTING PROVIDER: Jennifer Main NP REASON FOR CONSULT: Word finding difficulty. CHIEF COMPLAINT: Word finding difficulty. 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 He had radiation therapy to the neck. The patient presented to [facility] on 09/14/18 with sudden onset word finding difficulty. The patient stated that approximately at 5 p.m. on 09/14/18, he was finishing up with supper, when suddenly he felt that he was unable to produce words. His thought process is there, but was having trouble coming up with the right terminology. He had a total of 6 episodes lasting for approximately 2-10 minutes. He denied any associated symptoms of headaches, visual disturbance, focal weakness or paresthesias. He has never had any similar symptoms in the past. The patient had an episode in front of the examiner today where he had trouble pronouncing a few words as well as was talking about things like cupcakes and dinner as part of the history where did not fit to the provided history. After 3 minutes, the patient returned to his normal self. He found relief and was able to provide further history. He comprehended well during the episode. There was no twitching or seizure like activity. The patient had a CT head on 09/14/18 that showed no acute intracranial abnormality. He had a CTA head and neck that showed no evidence of large vessel occlusion. I personally reviewed both studies. The patient has a history of cervical spondylosis, but no evidence of myelopathy. PAST MEDICAL HISTORY: Hypertension, dyslipidemia, anxiety, asthma, history of prostate cancer, history of throat and tongue cancer status post chemo and radiation therapy, history of duodenal polyps. PAST SURGICAL HISTORY: Prostatomy, tonsillectomy, duodenal polyp removal, hernia repair. HOME MEDICATIONS: 1. Sertraline 100 mg at night. 2. Pantoprazole 40 mg p.o. b.i.d. 3. Hydrocortisone 2.5 mg topical cream twice daily. 4. Ascorbic acid 500 mg p.o. at night time. 5. Gabapentin 100 mg p.o. at night time. 6. Spiriva one puff inhalation in the morning. 7. Ventolin one puff inhalation every 4 hours. 8. Nystatin one application topical b.i.d., p.r.n. 9. Multivitamin one each p.o. at night time. 10. Simvastatin 10 mg p.o. at night time. 11. Docusate sodium 100 mg p.o. at night time. 12. Siletz 3 one daily at night time. 13. Lisinopril 5 mg tablet daily. 14. Psyllium one packet p.o. daily. 15. Montelukast 10 mg p.o. daily. 16. Vitamin D3 1000 units p.o. daily. ALLERGIES: CODEINE, PENICILLIN, and STEROIDS. FAMILY HISTORY: His father had AAA and passed at 70 years of age. His sister suffered from CHF. There is no family history of stroke or seizures. SOCIAL HISTORY: The patient used to be a former smoker. He quit at 40 years of age. He also had history of alcohol use but quit over 30 years ago. He denied any illicit drug use. 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 He lives with his . REVIEW OF SYSTEMS: A 14-point review of systems was obtained and otherwise negative except for what was mentioned in the HPI. PHYSICAL EXAM: Vitals: Temperature 98.5, pulse rate of 68, respiratory rate of 20, oxygen saturation 97% on room air and blood pressure 149/69. Please note that the patient did present with a elevated blood pressure of 201/88. General: Well- nourished, well-developed man in no acute distress. He is alert and cooperative and appears stated age. Head: Normocephalic and atraumatic. Eyes: Conjunctivae/corneas are clear. Neck is supple and symmetrical with no carotid bruit. Lungs are clear to auscultation bilaterally. Nonlabored breathing. Cardiovascular: Regular rate and rhythm with normal S1, S2. Extremities: Normal range of motion with no cyanosis. Skin: No skin lesions or laceration. Psych: Affect is broad and normal mood. Neurological Examination: Mental Status: The patient is awake, alert and oriented to person, place and time and general circumstance. He did have expressive aphasia mostly Broca's aphasia with intact comprehension, inability to repeat, inability to write, inability to read, but he was able to sing. Cranial Nerves: Normal to confrontation testing bilaterally. Pupils are mid range and reactive to light. Normal consensual response. Extraocular muscles are intact. There is no ptosis. No conjugate or asymmetrical nystagmus. Sensation is intact on the forehead, cheeks, and jaw region bilaterally. There is no facial asymmetry. He is able to hear throughout the history process. Symmetrical palatal elevation. Normal strength against shoulder resistance. Tongue is symmetrical and midline with no atrophy or fasciculation. Motor Right/ Left: No abnormal movements or pronator drift. Normal bulk and tone throughout. 5/5 strength in the upper and lower extremities. Reflexes: Right/ Left brachioradialis 2/2, biceps 2/2, triceps 2/2, patella 2/2, ankle 1/1, plantar flexor/flexor. Sensation is intact to light touch throughout. Normal vibration and proprioception at the great toes for his age. Coordination: Normal texxed-iw-fvor and rapid alternating movement. Gait: Narrow based. No ataxia. LABORATORY DATA: Laboratory data, the patient was hyponatremic with a sodium of 128 and improved to 130 today. HDL cholesterol was 53, LDL was 89, total cholesterol 152. ASSESSMENT: Mr. Sung Thompson is a 73-year-old man who has history of throat and tongue cancer status post chemo therapy and radiation therapy to the neck, who presented with intermittent episode of expressive aphasia. His blood pressure was significantly elevated. NIH stroke scale currently is 0, but a few minutes ago the NIH was 2 for expressive aphasia. The symptoms are intermittent. I suspect that the patient may have had a stroke to the left MCA vascular territory, distal infarct involving the frontal lobe. Other differential diagnosis is metastatic disease involving the left hemisphere manifesting as intermittent aphasia or focal seizures. It is unusual that the patient would have recurrent symptoms and resolve. This would typical for a stroke phenomenon. Also I do not suspect that he would have such recurrent TIAs over the last 24 hours without actually having a stroke. Further evaluation is recommended. The patient is not a candidate for IV tPA or mechanical thrombectomy, given his low NIH stroke scale and recurrent symptoms. RECOMMENDATION: Continue aspirin 81 mg daily. We will start him on Plavix 75 mg daily for 30 days and then discontinue. Continue simvastatin 10 mg nightly. I changed the MRI order to MRI brain with and without contrast given his history of cancer to evaluate for any metastatic brain disease. I also ordered a bedside routine EEG to evaluate for any epileptiform abnormalities in the left predominantly frontal hemisphere. Continue neurochecks every 4 hours. Please obtain a transthoracic 2D echo with bubble study to evaluate for any atrial or ventricular thrombus or PFO. Continue monitoring on telemetry. Allow permissive blood pressure control of systolic blood pressure less than 200 and diastolic blood pressure less than 110. He does not need any PT or OT but I recommend SUPER[employer] evaluation and treatment to evaluate for any dysphagia. Of note, the patient did have episode of coughing when he was drinking his orange juice this morning. Please perform a bed side swallow evaluation. Do not place a urinary catheter unless there is evidence of urinary retention. VTE prophylaxis with subcutaneous heparin injection 5000 units t.i.d. There is no indication for a long-term anticoagulation therapy at this time. TIME SPENT: I spent a total of 75 minutes and greater than 50% was spent directly reviewing the medical chart, obtaining history, examining the patient, education and counseling, and discussing the treatment plan as mentioned above. Also discussed the treatment plan with the primary provider Donna, who was caring for the patient. [id number]/[facility] #: [id number] RAZ
--- NOTE | 2018-09-15 16:55 | PN ---
Subjective Date of Service: 09/15/18 Interval History: Mr. Thompson continues to have spells of expressive aphasia. He is a poor historian, so some of the history is obtained from his . She feels as though he has been having spells similar to this for the last week. She has noted episodes where he seems to wander aimlessly. During these episodes, he will typically not respond if she speaks to him. He does not feel as though he had any episodes prior to arrival in the ED. He seems to have an aura prior to these episodes. He describes an odd sensation around his head and in his upper body, but he is not able to describe this sensation at all. He denies any CP, SOB, N/V/D. Nursing reported an episode of expressive aphasia lasting 10 min. This is the longest known episode at this time. Family History: Unchanged from Admission Social History: Unchanged from Admission Past Medical History: Unchanged from Admission Objective Active Medications: Acetaminophen (Tylenol Tab*) 650 mg PO Q4H PRN FEVER/PAIN Albuterol (Ventolin Hfa Inhaler*) 1 puff INH Q4H PRN WHEEZING Ascorbic Acid (Vitamin C Tab*) 500 mg PO QPM [facility] Aspirin (Aspirin Ec Tab*) 81 mg PO DAILY [facility] Clopidogrel Bisulfate (Plavix Tab*) 75 mg PO DAILY [facility] Gabapentin (Neurontin Cap(*)) 100 mg PO QPM [facility] Gadoteridol (Prohance* (Contrast)) 16 ml IV ONCE [facility] Heparin Sodium (Porcine) (Heparin Vial(*)) 5,000 units SUBCUT Q8HR [facility] Levetiracetam (Keppra Iv Premix*) 500 mg in 100 mls @ 400 mls/hr IV Q12H [facility] Levetiracetam (Keppra Tab*) 250 mg PO BID [facility] Lisinopril (Prinivil Tab*) 5 mg PO DAILY [facility] Montelukast Sodium (Singulair Tab*) 10 mg PO DAILY [facility] Multivitamins (Theragran Tab*) 1 tab PO QPM [facility] Pantoprazole Sodium (Protonix Tab *) 40 mg PO BID [facility] Psyllium Hydrophilic Mucilloid (Metamucil Herve*) 1 pkt PO DAILY [facility] Sertraline HCl (Zoloft*) 100 mg PO QPM [facility] Simvastatin (Zocor(Nf)) 10 mg PO QPM [facility] Tiotropium [place] (Spiriva Cap.Inh*) 1 cap INH QAM [facility] Vital Signs - 8 hr 09/15/18 11:27 Temperature 97.9 F Pulse Rate 71 Respiratory 20 Rate Blood Pressure 154/66 (mmHg) O2 Sat by Pulse 98 Oximetry Oxygen Devices in Use Now: None Appearance: Elderly male sitting in bed in NAD Eyes: No Scleral Icterus Ears/Nose/Mouth/Throat: Mucous Membranes Moist Neck: NL Appearance and Movements; NL JVP, Trachea Midline Respiratory: Symmetrical Chest Expansion and Respiratory Effort, Clear to Auscultation Cardiovascular: NL Sounds; No Murmurs; No JVD, RRR Abdominal: NL Sounds; No Tenderness; No Distention Extremities: No Edema Skin: No Rash or Ulcers Neurological: Alert and Oriented x 3, NL Sensation Lines/Tubes/Other Access: Clean, Dry and Intact Peripheral IV Nutrition: Taking PO's Result Diagrams: 09/15/18 07:08 09/16/18 05:48 Assess/Plan/Problems-Billing Assessment: Mr. Thompson is a 73 yo male with PMH of HTN, anxiety, prostate cancer, and tongue and neck cancer, s/p chemo and radiation; who presented to the ED with c/ o HTN and was found to be in hypertensive urgency and having episodes of expressive aphasia. - Patient Problems (1) Expressive aphasia Code(s): R47.01 - APHASIA Comment: - Unclear etiology; having multiple episodes a day, some lasting <1 min and the longest up to 10 min; symptoms sound very suspicious for absence seizures - No other neurological deficits - CT brain unremarkable - CTA head/neck shows minimal calcification of the left vertebral artery and minimal cervical spine changes - Appreciate Neurology consult; recommends brain MRI, EEG, echo, speech therapy eval, neuro checks - Echo unremarkable for PFO, EF 55-60% - MRI brain shows chronic ischemic white matter changes only - EEG pending - Continue aspirin, Plavix (30 days), statin (2) Hypertensive urgency Code(s): I16.0 - HYPERTENSIVE URGENCY Comment: - Resolved with labetalol in the ED - Allow for permissive HTN; goal <200/110 - Continue lisinopril (3) Hyperlipidemia Code(s): E78.5 - HYPERLIPIDEMIA, UNSPECIFIED Comment: - Continue simvastatin (4) Anxiety and depression Code(s): F41.9 - ANXIETY DISORDER, UNSPECIFIED; F32.9 - MAJOR DEPRESSIVE DISORDER, SINGLE EPISODE, UNSPECIFIED Comment: - Continue sertraline (5) Asthma Code(s): J45.909 - UNSPECIFIED ASTHMA, UNCOMPLICATED Comment: - Continue Spiriva, albuterol, Singulair (6) GERD (gastroesophageal reflux disease) Code(s): K21.9 - GASTRO-ESOPHAGEAL REFLUX DISEASE WITHOUT ESOPHAGITIS Comment : - Continue pantoprazole (7) DVT prophylaxis Comment: - Heparin SQ (8) Full code status Code(s): Z78.9 - OTHER SPECIFIED HEALTH STATUS Comment: Status and Disposition: Observation for continued neurological workup. Anticipate d/c home when medically stable. Attending: Becca Phillips
[2018-09-15] MEDS: Gabapentin CAP(*) 100 MG PO SCH (18:46)
[2018-09-15] MEDS: Vitamin THERAPEUTIC TAB PO SCH (18:46)
[2018-09-15] MEDS: Ascorbic Acid TAB* 500 MG PO SCH (18:47)
[2018-09-15] MEDS: Sertraline* 100 MG TAB PO SCH (18:47)
[2018-09-15] MEDS: CMCS:Simvastatin TAB(NF) 10 MG TAB PO SCH (18:49)
[2018-09-15] MEDS: levETIRAcetam 500 MG IVPREMIX* 500 MG/100 ML BAG IV SCH (19:35)
[2018-09-15] MEDS: levETIRAcetam TAB* 500 MG PO SCH (21:02)
--- NOTE | 2018-09-15 21:02 | EEG ---
ELECTROENCEPHALOGRAPHY: DATE OF STUDY: 09/15/18 - ROOM #[id number] ORDERED BY: Tee Booker MD MEDICATIONS: 1. Heparin. 2. Vitamin C. 3. Gabapentin. 4. Sertraline. 5. Simvastatin. 6. Theragran. 7. Protonix. 8. Aspirin. 9. Lisinopril. 10. Montelukast. 11. Metamucil. 12. Spiriva. 13. Acetaminophen. 14. Ventolin. DURATION OF THE STUDY: 15:31 to 15:32. INDICATION: Mr. Sung Thompson is a 73-year-old man with history of multiple head trauma in the past, who has also history of radiation therapy to the throat , who presented with multiple, recurrent word finding difficulty lasting for 1- 5 minute. MRI of the brain was negative. He has no evidence of intravascular stenosis. This EEG was obtain to evaluate for epileptiform abnormalities or electrographic seizures. CLINICAL STATE: Waking and drowsy. REPORT: The waking background showed appropriate organization with clearly defined anterior-posterior voltage and frequency gradients. There was a well- defined posterior dominant rhythm of 10 Hz, which was symmetrical and showed normal reactivity. Anteriorly, there was an expected pattern of lower voltage, irregular, mixed faster frequencies. There was attenuation of the posterior dominant rhythm accompanied drowsiness. There were intermittent, medium amplitude, polymorphic but predominantly theta frequency as seen occasionally in the left frontal temporal region predominantly at F7, T3, and T1. There were no epileptiform discharges. The slowing lasted for 1-2 seconds. Hyperventilation and photo stimulation were not performed. EKG showed a normal sinus rhythm with the rate of 75 beats per minute. There were no electrographic seizures. CLINICAL IMPRESSION: This is an abnormal EEG due to the presence of occasional left frontal temporal transient theta slowing with no evidence of epileptiform discharges. These findings are suggestive of a focal neuronal dysfunction in that region. Given that the patient did not have a stroke on MRI, I am concerned that he may be having small focal partial seizures manifesting as aphasia. I have started the patient on levetiracetam 500 mg IV x1 and then continue a small dose of levetiracetam 250 mg twice daily. We will continue to monitor the patient overnight and make further recommendations tomorrow. [id number]/[facility] #: [id number] [facility]
[2018-09-16] MEDS: Heparin VIAL(*) 5000 UNITS/ML VIAL (FIVE THOUSAND) SUBCUT SCH ×3 (05:33→21:28)
[2018-09-16 06:13] LABS: BUN/Creatinine Ratio 20.7 (8-20); Calcium 8.7 mg/dL (8.6-10.3); EGFR Non-African American 80.6 (>60)
[2018-09-16] MEDS: Tiotropium CAP.INH* CAP.INH/18 MCG (USE ORDER SET !) INH SCH (08:17)
[2018-09-16] MEDS: levETIRAcetam 500 MG IVPREMIX* 500 MG/100 ML BAG IV SCH (09:14)
[2018-09-16] MEDS: Clopidogrel TAB* 75 MG PO SCH (09:14)
[2018-09-16] MEDS: Psyllium PAK PO SCH (09:15)
[2018-09-16] MEDS: Pantoprazole TAB * 40 MG TAB PO SCH ×2 (09:15→21:27)
[2018-09-16] MEDS: Lisinopril TAB* 5 MG PO SCH (09:15)
[2018-09-16] MEDS: Aspirin EC TAB* 81 MG TAB.EC PO SCH (09:16)
[2018-09-16] MEDS: levETIRAcetam TAB* 500 MG PO SCH ×2 (09:16→21:28)
[2018-09-16] MEDS: Montelukast Sodium TAB* 10 MG PO SCH (09:16)
--- NOTE | 2018-09-16 12:09 | PN ---
Subjective Date of Service: 09/16/18 Length of Stay: 1 Days Neurology is following Mr. Thompson for the evaluation and management of recurrent transient aphasia. Interval History: Mr. Thompson had recurrent symptoms of word finding difficulty lasting between 1 minute - 25 minutes. He had the longest episode last night that lasted 25 minutes long. He was extremely concerned. He had no focal weakness. The nurse and midlevel provider noticed that he stares into space during long episodes. He has not had any events this morning. He is tolerating levetiracetam. Review of Systems: Denied CP, SOB, or palpitations. Family History: Unchanged from Admission Social History: Unchanged from Admission Past Medical History: Unchanged from Admission Objective Active Medications: Acetaminophen (Tylenol Tab*) 650 mg PO Q4H PRN PRN Reason: FEVER/PAIN Albuterol (Ventolin Hfa Inhaler*) 1 puff INH Q4H PRN PRN Reason: WHEEZING Ascorbic Acid (Vitamin C Tab*) 500 mg PO QPM [facility] Last Admin: 09/15/18 18:47 Dose: 500 mg Aspirin (Aspirin Ec Tab*) 81 mg PO DAILY [facility] Last Admin: 09/16/18 09:16 Dose: 81 mg Clopidogrel Bisulfate (Plavix Tab*) 75 mg PO DAILY [facility] Last Admin: 09/16/18 09:14 Dose: 75 mg Gabapentin (Neurontin Cap(*)) 100 mg PO QPM [facility] Last Admin: 09/15/18 18:46 Dose: 100 mg Gadoteridol (Prohance* (Contrast)) 16 ml IV ONCE [facility] Stop: 09/17/18 10:55 Heparin Sodium (Porcine) (Heparin Vial(*)) 5,000 units SUBCUT Q8HR [facility] Last Admin: 09/16/18 05:33 Dose: 5,000 units Levetiracetam (Keppra Tab*) 500 mg PO BID [facility] Lisinopril (Prinivil Tab*) 5 mg PO DAILY [facility] Last Admin: 09/16/18 09:15 Dose: 5 mg Montelukast Sodium (Singulair Tab*) 10 mg PO DAILY [facility] Last Admin: 09/16/18 09:16 Dose: 10 mg Multivitamins (Theragran Tab*) 1 tab PO QPM [facility] Last Admin: 09/15/18 18:46 Dose: 1 tab Pantoprazole Sodium (Protonix Tab *) 40 mg PO BID [facility] Last Admin: 09/16/18 09:15 Dose: 40 mg Psyllium Hydrophilic Mucilloid (Metamucil Herve*) 1 pkt PO DAILY [facility] Last Admin: 09/16/18 09:15 Dose: 1 pkt Sertraline HCl (Zoloft*) 100 mg PO QPM [facility] Last Admin: 09/15/18 18:47 Dose: 100 mg Simvastatin (Zocor(Nf)) 10 mg PO QPM [facility] Last Admin: 09/15/18 18:49 Dose: 10 mg Tiotropium [place] (Spiriva Cap.Inh*) 1 cap INH QAM [facility] Last Admin: 09/16/18 08:17 Dose: 1 cap Vital Signs 09/15/18 09/15/18 09/15/18 16:03 18:46 19:25 Temperature 97.3 F 98.0 F Pulse Rate 70 75 Respiratory 16 16 16 Rate Blood Pressure 128/59 158/61 (mmHg) O2 Sat by Pulse 98 98 Oximetry 09/15/18 09/15/18 09/15/18 20:00 21:00 23:14 Temperature 98.1 F Pulse Rate 73 Respiratory 16 16 20 Rate Blood Pressure 114/60 (mmHg) O2 Sat by Pulse 98 Oximetry 09/16/18 09/16/18 09/16/18 04:04 04:13 07:19 Temperature 98.6 F 97.6 F Pulse Rate 62 62 Respiratory 20 20 Rate Blood Pressure 96/77 113/55 106/59 (mmHg) O2 Sat by Pulse 97 97 Oximetry 09/16/18 08:18 Temperature Pulse Rate 77 Respiratory 16 Rate Blood Pressure (mmHg) O2 Sat by Pulse 98 Oximetry Intake and Output Last 24 Hours 09/14/18 09/15/18 09/16/18 09/17/18 06:59 06:59 06:59 06:59 Intake Total 0 1850 Output Total 900 600 Balance -900 1250 Weight 178 lb 1.6 oz Intake: Oral 0 1850 Output: Urine 900 600 Other: Estimated Void Medium # Voids 2 Oxygen Devices in Use Now: None Neurology Exam: General: Well nourished man in no acute distress. HEENT: Normocephalic/atraumatic, sclera anicteric, mucous membranes moist Neck: Supple Chest: Clear to auscultation bilaterally Cardiovascular: Regular rate and rhythm without murmurs, rubs, gallops Extremities: No clubbing, cyanosis, or edema Neurological Findings: Awake, Alert, Oriented x3 Speech: fluent without dysrhythmia, repetition intact Cranial Nerve: PERRL, EOM intact, VFF, no nystagmus, face symmetric bilaterally , facial sensation intact, hearing intact to finger rub bilaterally, palate elevates symmetrically, tongue midline, SCM and Trapezius s/s. Motor: s/s throughout, proximal and distal extremities x4 tone/bulk normal Sensation: intact to LT/PP bilaterally upper and lower extremities Deep Tendon Reflex: 2+ symmetric in the upper/lower extremities, 1+ at the ankles, Babinski - down going Finger to nose, rapid alternating movements intact without tremor, no dysdiadochokinesia Gait: intact with good arm swing and stride Result Diagrams: 09/15/18 07:08 09/16/18 05:48 Diagnostic Imaging: Imaging studies: reviewed. Brain CT head on 09/14/18: no acute intracranial abnormality. Head/Neck CTA 09/14/18: right and left common carotid artery: no flow limiting stenosis. TTE with bubble study 09/15/18: EF 55-60%. No PFO. MRI brain with and without contrast on 09/15/18: no evidence of acute stroke. Mild chronic ischemic white matter changes. EEG 09/15/18: Occasional left frontotemporal transient theta slowing with no evidence of epileptiform discharges. Assessment/Plan Mr. Sung Thompson is a 73-year-old man with history of neck radiation due to throat/tongue cancer who [place] [facility] [place] onset, recurrent, word finding difficulties. 1. Recurrent expressive aphasia and associated symptoms of staring spells- Most likely due to focal partial seizures. MRI brain with and without contrast show no evidence of metastatic disease or stroke. Recurrent TIAs is unlikely since he has no intracranial vascular stenosis or any reason for him to be having recurrent stuttering TIA without having a stroke. He seems to be responding to levetiracetam as he has not had any episodes today. 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 He has history of head trauma in the past and reports having a " chemo brain" although the radiation was isolated to the neck. Recommendations: Changed the dose of levetiracetam to 500 mg PO twice daily. Discontinued IV dosing. Discussed and educated the patient regarding seizure precautions and hygiene. Since he does not lose awareness or consciousness during these events, I recommended he should not drive for two weeks to make sure these episodes are under control. If he does lose awareness, the patient should not drive for 6 months. He verbalized understanding. Follow-up with me in 4 weeks. We will schedule a follow-up appointment. 2. Asymptomatic hyponatremia- defer further urine testing (urine sodium and osmolality) to the primary team to try to discern the etiology for this. D/w the primary team. Disposition: discharge home tomorrow if he has no episodes for the next 24 hours.
[2018-09-16 12:58] LABS: TSH (Thyroid Stimulating Horm) 2.24 mcIU/mL (0.34-5.60)
--- NOTE | 2018-09-16 16:13 | PN ---
Subjective Date of Service: 09/16/18 Interval History: Mr. Thompson is feeling much better today. He and his report that he has not had any further episodes of aphasia since receiving first dose of Keppra yesterday. He has been up ambulating around the room. He still feels some slight unsteadiness when he first stands, but that resolves within seconds. He denies CP, SOB, N/V, dizziness. Family History: Unchanged from Admission Social History: Unchanged from Admission Past Medical History: Unchanged from Admission Objective Active Medications: Acetaminophen (Tylenol Tab*) 650 mg PO Q4H PRN FEVER/PAIN Albuterol (Ventolin Hfa Inhaler*) 1 puff INH Q4H PRN WHEEZING Ascorbic Acid (Vitamin C Tab*) 500 mg PO QPM [facility] Aspirin (Aspirin Ec Tab*) 81 mg PO DAILY [facility] Gabapentin (Neurontin Cap(*)) 100 mg PO QPM [facility] Gadoteridol (Prohance* (Contrast)) 16 ml IV ONCE [facility] Heparin Sodium (Porcine) (Heparin Vial(*)) 5,000 units SUBCUT Q8HR [facility] Levetiracetam (Keppra Tab*) 500 mg PO BID [facility] Lisinopril (Prinivil Tab*) 5 mg PO DAILY [facility] Montelukast Sodium (Singulair Tab*) 10 mg PO DAILY [facility] Multivitamins (Theragran Tab*) 1 tab PO QPM [facility] Pantoprazole Sodium (Protonix Tab *) 40 mg PO BID [facility] Psyllium Hydrophilic Mucilloid (Metamucil Herve*) 1 pkt PO DAILY [facility] Sertraline HCl (Zoloft*) 100 mg PO QPM [facility] Simvastatin (Zocor(Nf)) 10 mg PO QPM [facility] Tiotropium [place] (Spiriva Cap.Inh*) 1 cap INH QAM [facility] Vital Signs - 8 hr 09/16/18 09/16/18 09/16/18 08:18 11:15 15:23 Temperature 97.6 F 97.2 F Pulse Rate 77 66 59 Respiratory 16 18 16 Rate Blood Pressure 144/69 104/52 (mmHg) O2 Sat by Pulse 98 98 94 Oximetry Oxygen Devices in Use Now: None Appearance: Elderly male sitting in bed in NAD Eyes: No Scleral Icterus Ears/Nose/Mouth/Throat: Mucous Membranes Moist Neck: NL Appearance and Movements; NL JVP, Trachea Midline Respiratory: Symmetrical Chest Expansion and Respiratory Effort, Clear to Auscultation Cardiovascular: NL Sounds; No Murmurs; No JVD, RRR Abdominal: NL Sounds; No Tenderness; No Distention Extremities: No Edema Skin: No Rash or Ulcers Neurological: Alert and Oriented x 3, NL Gait Lines/Tubes/Other Access: Clean, Dry and Intact Peripheral IV Nutrition: Taking PO's Result Diagrams: 09/15/18 07:08 09/16/18 05:48 Assess/Plan/Problems-Billing Assessment: Mr. Thompson is a 73 yo male with PMH of HTN, anxiety, prostate cancer, and tongue and neck cancer, s/p chemo and radiation; who presented to the ED with c/ o HTN and was found to be in hypertensive urgency and having episodes of expressive aphasia. - Patient Problems (1) Expressive aphasia Code(s): R47.01 - APHASIA Comment: - Likely secondary to new focal partial seizures - Was having multiple episodes a day, some lasting <1 min and the longest up to 10 min; no further episodes since starting Keppra - No other neurological deficits - CT brain unremarkable; CTA head/neck shows minimal calcification of the left vertebral artery and minimal cervical spine changes; MRI brain shows chronic ischemic white matter changes only; Echo unremarkable for PFO, EF 55-60% - Appreciate Neurology consult; recommends Keppra, no driving for 2 weeks - EEG showed left frontotemporal transient theta slowing - Stop Plavix - Continue Keppra 500mg BID (2) Hypertensive urgency Code(s): I16.0 - HYPERTENSIVE URGENCY Comment: - Resolved with labetalol in the ED, now normotensive - Continue lisinopril (3) Hyperlipidemia Code(s): E78.5 - HYPERLIPIDEMIA, UNSPECIFIED Comment: - Continue simvastatin (4) Anxiety and depression Code(s): F41.9 - ANXIETY DISORDER, UNSPECIFIED; F32.9 - MAJOR DEPRESSIVE DISORDER, SINGLE EPISODE, UNSPECIFIED Comment: - Continue sertraline (5) Asthma Code(s): J45.909 - UNSPECIFIED ASTHMA, UNCOMPLICATED Comment: - Continue Spiriva, albuterol, Singulair (6) Chronic hyponatremia Code(s): E87.1 - HYPO-OSMOLALITY AND HYPONATREMIA Comment: - Stable (7) GERD (gastroesophageal reflux disease) Code(s): K21.9 - GASTRO-ESOPHAGEAL REFLUX DISEASE WITHOUT ESOPHAGITIS Comment : - Continue pantoprazole (8) DVT prophylaxis Comment: - Heparin SQ (9) Full code status Code(s): Z78.9 - OTHER SPECIFIED HEALTH STATUS Comment: Status and Disposition: Observation for continued neurological workup. Anticipate d/c home tomorrow as long as there are no further episodes of aphasia. Attending: Becca Phillips
[2018-09-16] MEDS: CMCS:Simvastatin TAB(NF) 10 MG TAB PO SCH (17:46)
[2018-09-16] MEDS: Sertraline* 100 MG TAB PO SCH (17:47)
[2018-09-16] MEDS: Gabapentin CAP(*) 100 MG PO SCH (17:47)
[2018-09-16] MEDS: Ascorbic Acid TAB* 500 MG PO SCH (17:47)
[2018-09-16] MEDS: Vitamin THERAPEUTIC TAB PO SCH (17:47)
[2018-09-17] MEDS: Heparin VIAL(*) 5000 UNITS/ML VIAL (FIVE THOUSAND) SUBCUT SCH (05:56)
[2018-09-17] MEDS: Tiotropium CAP.INH* CAP.INH/18 MCG (USE ORDER SET !) INH SCH (07:49)
[2018-09-17] MEDS: levETIRAcetam TAB* 500 MG PO SCH (08:12)
[2018-09-17] MEDS: Psyllium PAK PO SCH (08:12)
[2018-09-17] MEDS: Pantoprazole TAB * 40 MG TAB PO SCH (08:12)
[2018-09-17] MEDS: Aspirin EC TAB* 81 MG TAB.EC PO SCH (08:12)
[2018-09-17] MEDS: Montelukast Sodium TAB* 10 MG PO SCH (08:12)
[2018-09-17] MEDS: Lisinopril TAB* 5 MG PO SCH (08:12)
[2018-09-17 10:18] LABS: BUN/Creatinine Ratio 20.7 (8-20); Calcium 8.9 mg/dL (8.6-10.3)
[2018-09-17 10:48] VITALS: BP 123/67
--- NOTE | 2018-09-17 12:53 | PN ---
Subjective Date of Service: 09/17/18 Length of Stay: 2 Days Neurology is following for suspected seizures. Interval History: He did not have any episodes of aphasia for > 24 hours (since starting levetiracetam). Mrs. Thompson was at bedside today and further history was provided. Since 2011, the patient has been experiencing episodes of "confusion." He would have trouble recalling names, places, or even things he may have done minutes before. These episodes were intermittent. Following these events, he becomes lethargic and drowsy. He used to blame this on "chemo-brain." He was having episodes almost monthly. There was no episodes of convulsive seizures. Review of Systems: Denied CP, SOB, or palpitations. Family History: Unchanged from Admission Social History: Unchanged from Admission Past Medical History: Unchanged from Admission Objective Active Medications: Acetaminophen (Tylenol Tab*) 650 mg PO Q4H PRN PRN Reason: FEVER/PAIN Albuterol (Ventolin Hfa Inhaler*) 1 puff INH Q4H PRN PRN Reason: WHEEZING Ascorbic Acid (Vitamin C Tab*) 500 mg PO QPM [facility] Last Admin: 09/16/18 17:47 Dose: 500 mg Aspirin (Aspirin Ec Tab*) 81 mg PO DAILY [facility] Last Admin: 09/17/18 08:12 Dose: 81 mg Gabapentin (Neurontin Cap(*)) 100 mg PO QPM [facility] Last Admin: 09/16/18 17:47 Dose: 100 mg Heparin Sodium (Porcine) (Heparin Vial(*)) 5,000 units SUBCUT Q8HR [facility] Last Admin: 09/17/18 05:56 Dose: 5,000 units Levetiracetam (Keppra Tab*) 500 mg PO BID [facility] Last Admin: 09/17/18 08:12 Dose: 500 mg Lisinopril (Prinivil Tab*) 5 mg PO DAILY [facility] Last Admin: 09/17/18 08:12 Dose: 5 mg Montelukast Sodium (Singulair Tab*) 10 mg PO DAILY [facility] Last Admin: 09/17/18 08:12 Dose: 10 mg Multivitamins (Theragran Tab*) 1 tab PO QPM [facility] Last Admin: 09/16/18 17:47 Dose: 1 tab Pantoprazole Sodium (Protonix Tab *) 40 mg PO BID [facility] Last Admin: 09/17/18 08:12 Dose: 40 mg Psyllium Hydrophilic Mucilloid (Metamucil Herve*) 1 pkt PO DAILY [facility] Last Admin: 09/17/18 08:12 Dose: 1 pkt Sertraline HCl (Zoloft*) 100 mg PO QPM [facility] Last Admin: 09/16/18 17:47 Dose: 100 mg Simvastatin (Zocor(Nf)) 10 mg PO QPM [facility] Last Admin: 09/16/18 17:46 Dose: 10 mg Tiotropium [place] (Spiriva Cap.Inh*) 1 cap INH QAM [facility] Last Admin: 09/17/18 07:49 Dose: 1 cap Vital Signs 09/16/18 09/16/18 09/16/18 15:23 17:47 19:38 Temperature 97.2 F 97.8 F Pulse Rate 59 58 Respiratory 16 16 18 Rate Blood Pressure 104/52 126/65 (mmHg) O2 Sat by Pulse 94 99 Oximetry 09/16/18 09/17/18 09/17/18 20:00 00:00 03:46 Temperature 97.6 F 97.7 F Pulse Rate 60 61 Respiratory 18 19 18 Rate Blood Pressure 103/60 105/55 (mmHg) O2 Sat by Pulse 98 96 Oximetry 09/17/18 09/17/18 07:50 08:02 Temperature 97.5 F Pulse Rate 74 64 Respiratory 16 20 Rate Blood Pressure 123/67 (mmHg) O2 Sat by Pulse 98 98 Oximetry Intake and Output Last 24 Hours 09/15/18 09/16/18 09/17/18 09/18/18 06:59 06:59 06:59 06:59 Intake Total 0 1850 1390 Output Total 900 600 0 Balance -900 1250 1390 Weight 178 lb 1.6 oz Intake: Oral 0 1850 1390 Output: Urine 900 600 0 Other: Estimated Void Medium # Voids 2 Oxygen Devices in Use Now: None Neurology Exam: General: Well nourished man in no acute distress. HEENT: Normocephalic/atraumatic, sclera anicteric, mucous membranes moist Extremities: No clubbing, cyanosis, or edema Neurological Findings: Awake, Alert, Oriented x3 Speech: fluent without dysrhythmia, repetition intact Cranial Nerve: PERRL, EOM intact, VFF, no nystagmus, face symmetric bilaterally , facial sensation intact, hearing intact to finger rub bilaterally, palate elevates symmetrically, tongue midline, SCM and Trapezius s/s. Motor: s/s throughout, proximal and distal extremities x4 tone/bulk normal Sensation: intact to LT/PP bilaterally upper and lower extremities Deep Tendon Reflex: 2+ symmetric in the upper/lower extremities, 1+ at the ankles, Babinski - down going Finger to nose, rapid alternating movements intact without tremor, no dysdiadochokinesia Gait: intact with good arm swing and stride Result Diagrams: 09/15/18 07:08 09/17/18 09:42 Diagnostic Imaging: Imaging studies: reviewed. Brain CT head on 09/14/18: no acute intracranial abnormality. Head/Neck CTA 09/14/18: right and left common carotid artery: no flow limiting stenosis. TTE with bubble study 09/15/18: EF 55-60%. No PFO. MRI brain with and without contrast on 09/15/18: no evidence of acute stroke. Mild chronic ischemic white matter changes. EEG 09/15/18: Occasional left frontotemporal transient theta slowing with no evidence of epileptiform discharges. Assessment/Plan Mr. 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 1. Recurrent expressive aphasia and associated symptoms of staring spells- resolved for > 24 hours after levetiracetam. 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 Continue levetiracetam 500 mg twice daily. He is tolerating the medication without any reported side effects. "MRI brain with and without contrast show no evidence of metastatic disease or stroke. Recurrent TIAs is unlikely since he has no intracranial vascular stenosis or any reason for him to be having recurrent stuttering TIA without having a stroke. He seems to be responding to levetiracetam as he has not had any episodes today. 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 He has history of head trauma in the past and reports having a "chemo brain" although the radiation was isolated to the neck. " Recommendations: levetiracetam to 500 mg PO twice daily. Discussed and educated the patient regarding seizure precautions and hygiene. Since he does not lose awareness or consciousness during these events, I recommended he should not drive for two weeks to make sure these episodes are under control. If he does lose awareness, the patient should not drive for 6 months. He verbalized understanding. Follow-up with me in 4 weeks. We will schedule a follow-up appointment. 2. Asymptomatic hyponatremia- improving.
--- NOTE | 2018-09-17 23:05 | DS ---
CC: Dr. Galina Seay; Dr. Tee Booker * DISCHARGE SUMMARY: DATE OF ADMISSION: 09/14/18 DATE OF DISCHARGE: 09/17/18 PRIMARY CARE PROVIDER: Dr. Galina Seay. MY ATTENDING WHILE IN THE HOSPITAL: Dr. Becca Phillips.* (DICTATED BY CHIKA WEATHERS) OUTPATIENT NEUROLOGIST: Dr. Tee Booker. PRIMARY DISCHARGE DIAGNOSIS: Focal seizures with aphasia. SECONDARY DISCHARGE DIAGNOSES: 1. Hypertension. 2. Hyperlipidemia. 3. Anxiety. 4. Asthma. 5. History of prostate cancer. 6. History of tongue cancer. 7. History of duodenal polyp status post removal. 8. Hyponatremia. STUDIES DONE WHILE IN THE HOSPITAL: Chest x-ray from 09/14/18, no evidence for acute disease. Brain CT from 09/14/18 shows no intracranial pathology. Head CTA from 09/14/18 read as minimal calcification involving the left vertebral artery, no other acute findings. Transthoracic echocardiogram read as global left ventricular wall motion contractility within normal limits. Left ejection fraction. Systolic function is normal. Estimated ejection fraction 55 to 60%. Left ventricle is mild to moderately dilated. Right ventricular global systolic function is normal. PFO is not demonstrated with color Doppler or agitated contrast. There is mild-to- moderate aortic regurgitation. There is mild mitral regurgitation. There is trace- to-mild tricuspid regurgitation. Right ventricular systolic pressure estimated at 21 mmHg with evidence of pulmonary hypertension may be underestimated. There is no significant pericardial effusion. Brain MRI from 09/15/18 read as no intracranial mass or hemorrhage is noted, no restriction or diffusion is noted, nonspecific paraventricular signal abnormalities are noted in the periventricular white matter. Indicative of chronic ischemic white matter change. Electroencephalogram from 09/15/18 read as waking background shows appropriate organization, posterior dominant rhythm 10 Hz, attenuation of the posterior dominant rhythm with drowsiness, only lasting for 1 to 2 seconds. MEDICATIONS AT DISCHARGE: 1. Sertraline 100 mg p.o. daily. 2. Pantoprazole 40 mg p.o. b.i.d. 3. Hydrocortisone 1 application topical b.i.d. as needed. 4. Vitamin C 500 mg p.o. q.p.m. 5. Gabapentin 100 mg p.o. q.p.m. 6. Albuterol 1 puff inhalation q.4 hours as needed. 7. Tiotropium 1 puff inhalation q.a.m. 8. Nystatin 1 application topical b.i.d. as needed. 9. Econazole 1 application topical b.i.d. as needed. 10. Multivitamin 1 each p.o. q.p.m. 11. Simvastatin 10 mg p.o. q.p.m. 12. Docusate 100 mg p.o. q.p.m. 13. [place]-3 fish oil 1 q.p.m. 14. Lisinopril 5 mg p.o. daily. 15. Psyllium 1 packet p.o. daily. 16. Singulair 10 mg p.o. daily. 17. Vitamin D3 1000 units p.o. daily. 18. Tylenol 650 mg p.o. q.4 hours as needed. 19. Keppra 500 mg p.o. b.i.d. 20. Aspirin 81 mg p.o. daily. HOSPITAL COURSE: This is a brief summary of the patient's presentation. For more details, please see the history and physical from Jennfier Main NP, on 09/14/18. In brief, the patient is a 73-year-old male with a past medical history significant for the above, who presented to the emergency department with a strange feeling like his mind was racing and he felt jittery with disorganization of his thoughts. The patient was brought in by ambulance. The patient in the emergency department began to have episodes of expressive aphasia that lasted for approximately 10 minutes. He had 2 episodes while in the emergency department. The patient was admitted to the hospital with concern for TIA. The patient was allowed permissive hypertension and his blood pressure slowly trended down. The patient was brought in for a TIA workup and had studies as above. The patient continued to have episodes of expressive aphasia while in the hospital. There was concern for subclinical seizures and the patient was started on Keppra with immediate resolution of his episodes. The patient was started on aspirin, which was continued at discharge. The patient had no other vital sign abnormalities. The patient had hyponatremia at his baseline of approximately 130 while in the hospital. This is of unknown etiology. The patient states that he has not had this worked up before. The patient was stable and amenable for discharge on 09/17/18. PHYSICAL EXAM ON THE DAY OF DISCHARGE: General: The patient is a 73-year-old male who appears stated age and sitting comfortably in the bed, in no acute distress. HEENT: Head: Normocephalic, atraumatic. Sclerae anicteric. No conjunctival injection. Nasal mucosa is moist. Oral mucosa is moist. No pharyngeal erythema, discharge, or exudate. Vital signs: Temperature 97.5, pulse rate 64, respiratory rate 20, oxygen saturation 98% on room air, blood pressure 123/67. Neck: Supple, nontender. No lymphadenopathy. No carotid bruits auscultated. No JVD. Cardiac: Regular rate and rhythm. No clicks, murmurs, gallops, or rubs. Pulses 2+ in the bilateral dorsalis pedis, posterior tibialis, and radial areas. Respiratory: Clear to auscultation bilaterally. No wheezes, rales, or rhonchi. Good air exchange bilaterally. Abdomen: Soft, nontender, nondistended. Bowel sounds present. Normoactive in all 4 quadrants. No hepatosplenomegaly. No abdominal bruits auscultated. No hepatojugular reflux. Genitourinary: No suprapubic or CVA tenderness. Skin: Clean, dry, intact. No rash. Neuro: Cranial nerves II through XII intact. No focal deficits. Alert and oriented x3. Psychiatric: Pleasant and cooperative. DISCHARGE PLAN: The patient will be discharged to home. The patient has been started on Keppra and is tolerating it well with no fluctuations in his mood. The patient should avoid driving for 2 days. The patient should follow up with Dr. Tee Booker in 3 to 4 weeks for continued monitoring of his antiepileptic medication and assessment for recurrent symptoms or new neurologic deficits. The patient will be started on aspirin for primary prevention of TIA. The patient should return to the hospital for alarming symptoms such as new neurologic deficits, passing out, involuntary movements, GI bleeding, chest pain , or shortness of breath. The patient should have a heart healthy diet without caffeine and engage in activities as tolerated. The patient should have a repeat BMP at his followup with his primary care provider within 1 week and discuss possible further workup and treatment for his low sodium including possible medication discontinuation and urine studies as indicated. TIME SPENT: Approximately 60 minutes were spent on the discharge of this patient, 30 of which were spent [id number] with the patient obtaining history and physical and discussing treatment plan. CHIKA WEATHERS [id number]/[facility] #: [id number] [facility] MEDICAL CENTERAlan
== END 2018-09-17 12:55 | disposition home or self-care (01) ==
LOC: ED 20:09 → MEDTELE 09-15 01:28
PROVIDERS: ADMIT Internal Medicine; ATTEND Internal Medicine
DX: G40.209 Localization-related (focal) (partial) symptomatic epilepsy and epileptic syndromes with complex partial seizures, not intractable, without status epilepticus (principal); R47.01 Aphasia; I16.0 Hypertensive urgency; E78.5 Hyperlipidemia, unspecified; F41.9 Anxiety disorder, unspecified; J45.909 Unspecified asthma, uncomplicated; Z85.46 Personal history of malignant neoplasm of prostate; Z85.810 Personal history of malignant neoplasm of tongue; Z87.19 Personal history of other diseases of the digestive system; E87.1 Hypo-osmolality and hyponatremia; Z79.82 Long term (current) use of aspirin; R41.82 Altered mental status, unspecified; K21.9 Gastro-esophageal reflux disease without esophagitis
CPT/HCPCS: 36415; 70450; 70496; 70498; 70553; 71045; 80048; 80053; 80061; 82607; 83735; 84443; 85025; 85610; 85730; 93005; 93306; 94640; 95816; 96372; 96374; 99285; A9270-GY; A9579; G0378; G8978-GP-CH; G8979-GP-CH; G8980-GP-CH; G9162-GN-CM; G9163-GN-CI; J1644; Q9967

== ENCOUNTER 2019-03-30 18:26 | Emergency (ER) | payer MEDICARE ==
--- NOTE | 2019-03-30 19:37 | ED ---
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 He notes that these sensations in his arms were similar to the symptoms he felt in a seizure he sustained before, happening on 09/2018. 2018 seizure was his first seizure and he reports no subsequent episodes. He reports nausea has since resolved, and mentions that the feelings in his arms resolved by the time EMS arrived. He also reports a HR over 130 BPM and systolic BP over 173 before arriving but denies any current dizziness. He takes 500 mg of Keppra BID and has not had his nighttime dose. The pt has Hx of Anxiety, Depression, and Seizures. - History of Current Complaint Chief Complaint: EDSeizure Stated Complaint: POSSIBLE SEIZURE PER EMS Time Seen by Provider: 03/30/19 19:26 Hx Obtained From: Patient Onset/Duration: Sudden Onset, Started hours ago, Resolved Timing: Sudden Onset Neurological Deficit Location: RUE - tingling, LUE - tingling Pain Intensity: 0 Pain Scale Used: 0-10 Numeric Character: Numbness/Tingling - "Light film" covering his arms Associated Signs and Symptoms: Positive: Nausea/Vomiting. Negative: Loss of Consciousness, Pain - Additional Pertinent History Primary Care Physician: [id number] - Allergy/Home Medications Allergies/Adverse Reactions: Allergies Allergy/AdvReac Type Severity Reaction Status Date / Time codeine Allergy Insomnia Verified 05/18/18 20:23 Penicillins Allergy Rash Verified 05/18/18 20:23 "anti-nausea med" Allergy See Comment Uncoded 05/18/18 20:23 "steroid inhaler" Allergy See Comment Uncoded 05/18/18 20:23 steriods Allergy See Comment Uncoded 05/18/18 20:23 PMH/Surg Hx/FS Hx/Imm Hx Endocrine/Hematology History: Denies: Hx Diabetes Cardiovascular History: Reports: Hx Hypercholesterolemia, Hx Hypertension, Other Cardiovascular Problems/Disorders - hypercholesterolemia Denies: Hx Pacemaker/ICD Respiratory History: Reports: Hx Asthma, Other Respiratory Problems/Disorders - pneumonia 1.5 yrs ago GI History: Reports: Hx Gastroesophageal Reflux Disease, Other GI Disorders - hx duodenal polyp removed, hx gi bleed History: Reports: Other Problems/Disorders - prostate cancer Denies: Hx Dialysis, Hx Renal Disease Musculoskeletal History: Reports: Hx Arthritis - hands Sensory History: Reports: Hx Contacts or Glasses, Hx Hearing Aid Opthamlomology History: Reports: Hx Contacts or Glasses Neurological History: Reports: Hx Seizures, 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 prostatectomy 2006 - [facility]. drained abscess in throat while in [employer] [place] Hx Anesthesia Reactions: No - Immunization History Date of Influenza Vaccine: 05/2016 Infectious Disease History: No Infectious Disease History: Denies: Traveled Outside the [place] in Last 30 Days - Family History Known Family History: Positive: Cardiac Disease Negative: Respiratory Disease - Social History Alcohol Use: None Substance Use Type: Reports: None Hx Tobacco Use: Yes Smoking Status (MU): Former Smoker Type: Cigars Amount Used/How Often: 3 cigars per day for 10 years Review of Systems Positive: Nausea Neurological: Other - Positive - sensation of "light film" covering arms, Negative - dizziness, LOC All Other Systems Reviewed And Are Negative: Yes Physical Exam - Summary Physical Exam Summary: VITAL SIGNS: Reviewed. GENERAL: Patient is a well-developed and nourished male who is lying comfortable in the stretcher. Patient is not in any acute respiratory distress. HEAD AND FACE: No signs of trauma. No ecchymosis, hematomas or skull depressions. No sinus tenderness. EYES: PERRLA, EOMI x 2, No injected conjunctiva, no nystagmus. EARS: Hearing grossly intact. Ear canals and tympanic membranes are within normal limits. MOUTH: Oropharynx within normal limits. NECK: Supple, trachea is midline, no adenopathy, no JVD, no carotid bruit, no c- spine tenderness, neck with full ROM CHEST: Symmetric, no tenderness at palpation LUNGS: Clear to auscultation bilaterally. No wheezing or crackles. CVS: Regular rate and rhythm, S1 and S2 present, no murmurs or gallops appreciated. ABDOMEN: Soft, non-tender. No signs of distention. No rebound no guarding, and no masses palpated. Bowel sounds are normal. EXTREMITIES: FROM in all major joints, no edema, no cyanosis or clubbing. NEURO: Alert and oriented x 3. No acute neurological deficits. Speech is normal and follows commands. SKIN: Dry and warm Triage Information Reviewed: Yes Vital Signs On Initial Exam: Initial Vitals Temp Pulse Resp BP Pulse Ox 97.8 F 66 16 167/78 97 03/30/19 18:39 03/30/19 18:39 03/30/19 18:39 03/30/19 18:39 03/30/19 18:39 Vital Signs Reviewed: Yes Diagnostics - Vital Signs Vital Signs Temp Pulse Resp BP Pulse Ox 03/30/19 19:00 67 15 97 03/30/19 18:46 70 18 98 03/30/19 18:39 97.8 F 66 16 167/78 97 - Laboratory Result Diagrams: 03/30/19 19:49 Lab Statement: Any lab studies that have been ordered have been reviewed, and results considered in the medical decision making process. 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 He notes that these sensations in his arms were similar to the symptoms he felt in a seizure he sustained before, happening on 09/2018. 2018 seizure was his first seizure and he reports no subsequent episodes. He reports nausea has since resolved, and mentions that the feelings in his arms resolved by the time EMS arrived. He denies any current dizziness. He takes 500 mg of Keppra BID and has not had his nighttime dose. Test results with no significant abnormalities except for Hct @ 41, Absolute lymphs @ 0.9, Sodium at 134, Chloride at 99, BUN/Creatinine @ 20.4, and Glucose @ 114. In the ED course the patient was given 500 mg Keppra PO. The pt was discharged home and advised to follow up with his primary care physician within 3 days. - Diagnoses Provider Diagnoses: Nausea Discharge - Sign-Out/Discharge Documenting (check all that apply): Patient Departure - discharge Patient Received Moderate/Deep Sedation with Procedure: No - Discharge Plan Condition: Stable Disposition: HOME Patient Education Materials: Acute Nausea and Vomiting (ED) Referrals: Galina Seay MD [Primary Care Provider] - 3 Days Additional Instructions: PLEASE RETURN TO THE ED IMMEDIATELY FOR WORSENING OR CONCERNING SYMPTOMS. FOLLOW UP WITH PRIMARY CARE PHYSICIAN WITHIN 3 DAYS. - Attestation Statements Document Initiated by Scribe: Yes Documenting Scribe: AMRIK ADAMS Provider For Whom Scribe is Documenting (Include Credential): JASPREET CHAPMAN MD Scribe Attestation: IAMRIK, scribed for JASPREET CHAPMAN MD on 03/30/19 at 2042. Status of Scribe Document: Ready
[2019-03-30] MEDS ORDERED: levETIRAcetam TAB* 500 MG PO ONE (19:41)
[2019-03-30 19:58] LABS: ABS Lymphocytes 0.9 10^3/ul (1.0-4.8); ABS Monocytes 0.5 10^3/ul (0-0.8); ABS Neutrophils 4.3 10^3/ul (1.5-7.7); Eosinophil % 0.6 %; Hematocrit 41 % (42-52); Hemoglobin 14.2 g/dL (14.0-18.0); Lymphocyte % 15.9 %; Mean Corpuscular HGB Conc 35 g/dL (31-36); Mean Corpuscular Hemoglobin 30 pg (27-31); Mean Corpuscular Volume 87 fL (80-94); Mean Platelet Volume 8.8 fL (7.4-10.4); Platelet Count 171 10^3/uL (150-450); Red Blood Count 4.66 10^6 /uL (4.18-5.48); Red Cell Distribution Width 13 % (10-15); White Blood Count 5.9 10^3/uL (3.5-10.8)
[2019-03-30 20:12] LABS: Albumin 4.8 g/dL (3.2-5.2); Albumin/Globulin Ratio 2.1 (1-3); BUN/Creatinine Ratio 20.4 (8-20); Calcium 9.3 mg/dL (8.6-10.3); EGFR African American 90.5 (>60); EGFR Non-African American 74.8 (>60); Globulin 2.3 g/dL (2-4); Total Bilirubin 0.4 mg/dL (0.2-1.0); Total Protein 7.1 g/dL (6.4-8.9)
[2019-03-30 20:36] VITALS: BP 157/75
== END 2019-03-30 20:35 | disposition home or self-care (01) ==
LOC: ED 18:26
DX: R11.0 Nausea (principal); Z88.5 Allergy status to narcotic agent; Z88.0 Allergy status to penicillin; Z88.8 Allergy status to other drugs, medicaments and biological substances; E78.00 Pure hypercholesterolemia, unspecified; I10 Essential (primary) hypertension; J45.909 Unspecified asthma, uncomplicated; K21.9 Gastro-esophageal reflux disease without esophagitis; Z87.891 Personal history of nicotine dependence; Z79.899 Other long term (current) drug therapy
CPT/HCPCS: 36415; 80053; 85025; 99283; A9270-GY

== ENCOUNTER 2022-05-25 15:35 | Observation (INO) ==
[2022-05-25 16:30] LABS: ABS Basophils 0.1 10^3/ul (0-0.2); ABS Lymphocytes 0.6 10^3/ul (1.0-4.8); ABS Monocytes 0.4 10^3/ul (0-0.8); ABS Neutrophils 4.6 10^3/ul (1.5-7.7); Eosinophil % 0.5 %; Hematocrit 38 % (42-52); Hemoglobin 13.2 g/dL (14.0-18.0); Lymphocyte % 10.5 %; Mean Corpuscular HGB Conc 35 g/dL (31-36); Mean Corpuscular Hemoglobin 31 pg (27-31); Mean Corpuscular Volume 89 fL (80-94); Mean Platelet Volume 9.7 fL (7.4-10.4); Platelet Count 153 10^3/uL (150-450); Red Blood Count 4.25 10^6 /uL (4.18-5.48); Red Cell Distribution Width 14 % (10-15); White Blood Count 5.7 10^3/uL (3.5-10.8)
[2022-05-25 16:44] LABS: INR 0.99 (0.89-1.11)
[2022-05-25 17:14] LABS: Albumin 4.8 g/dL (3.2-5.2); Albumin/Globulin Ratio 2.5 (1-3); Calcium 9.3 mg/dL (8.6-10.3); Globulin 1.9 g/dL (2-4); Magnesium 2.2 mg/dL (1.9-2.7); Potassium 3.8 mmol/L (3.5-5.0); Total Bilirubin 0.5 mg/dL (0.2-1.0); Total Protein 6.7 g/dL (6.4-8.9); eGFR CKD-EPI 73.1 (>60)
[2022-05-25] MEDS ORDERED: Valproic Acid IV 1,000 MG in NS 0.9% 100 ml BAG 100 ML IVPB ONE (17:15)
[2022-05-25] MEDS ORDERED: Albuterol HFA INHALER 8 gm MDI INH PRN (18:19)
[2022-05-25] MEDS ORDERED: LORazepam 2 mg VIAL 1 ml ONE (21:50)
[2022-05-25] MEDS ORDERED: Lorazepam PYXIS KEY PRN (22:00)
[2022-05-25] MEDS ORDERED: LORazepam 2 mg VIAL 1 ml IV PUSH ONE (22:00)
[2022-05-26] MEDS: CMC:Simvastatin 10 mg TAB (NF) PO SCH ×2 (01:03→20:50)
[2022-05-26] MEDS: SPIRIVA Respimat (tiotropium) 2.5 mcg/inh Inhaler INH SCH (07:30)
[2022-05-26] MEDS: Aspirin EC 81 mg TAB.EC (enteric coated) PO SCH (07:54)
[2022-05-27] MEDS: SPIRIVA Respimat (tiotropium) 2.5 mcg/inh Inhaler INH SCH (08:18)
[2022-05-27] MEDS: Aspirin EC 81 mg TAB.EC (enteric coated) PO SCH (08:57)
[2022-05-27 15:46] VITALS: BP 131/59
== END 2022-05-27 17:00 | disposition home or self-care (01) ==
LOC: EDHOLD 15:35 → ED 15:35 → MEDTELE 05-26 00:10
PROVIDERS: ADMIT Internal Medicine; ATTEND Internal Medicine

== ENCOUNTER 2023-10-09 01:46 | Inpatient (IN) ==
[2023-10-09 04:10] LABS: ABS Lymphocytes 0.5 10^3/uL (1.0-4.8); ABS Neutrophils 5.8 10^3/uL (1.5-7.6); Eosinophil % 0.1 %; Hematocrit 26.8 % (38-53); Hemoglobin 9.6 g/dL (13.2-16.3); Lymphocyte % 6.5 %; Mean Corpuscular Hemoglobin 32.8 pg (27-33); Mean Corpuscular Hgb Conc 35.9 g/dL (31-36); Mean Corpuscular Volume 91.4 fL (80-97); Mean Platelet Volume 8.4 fL (7.5-11.2); Platelet Count 107 10^3/uL (150-450); Red Blood Count 2.93 10^6/uL (4.06-5.63); White Blood Count 7.4 10^3/uL (3.6-10.2)
[2023-10-09 04:30] LABS: Albumin 3.9 g/dL (3.2-5.2); Calcium 8.4 mg/dL (8.6-10.3); Creatinine, Serum 0.9 mg/dL (0.67-1.17); Potassium 3.9 mmol/L (3.5-5.0); Total Bilirubin 0.5 mg/dL (0.2-1.0); Total Protein 5.9 g/dL (6.4-8.9); eGFR CKD-EPI 87.4 (>60)
[2023-10-09] MEDS ORDERED: Al Hydrox/Mg Hydrox/Simet LIQ 30 ML UDC PO PRN (05:36)
[2023-10-09] MEDS ORDERED: Polyethylene Glycol 3350 17 GM PACKET PO PRN (05:36)
[2023-10-09] MEDS: NS 0.9% 1000 ml BAG 1,000 ML IV SCH (06:41)
[2023-10-09] MEDS: Enoxaparin 40 MG/0.4 ML SYR SUBCUT SCH (06:42)
[2023-10-09 07:28] LABS: High Sensitivity Troponin 1 Hr 13 pg/mL (<20)
[2023-10-09] MEDS: Albuterol HFA INHALER 8 gm MDI INH SCH (07:45)
[2023-10-09] MEDS: DOXYcycline 100 MG in NS 0.9% 250 ml 250 ML IVPB SCH ×2 (07:49→21:55)
[2023-10-09 08:25] LABS: Urine Appearance Cloudy; Urine Bilirubin Negative (Negative); Urine Blood Negative (Negative); Urine Color Yellow; Urine Glucose Negative (Negative); Urine Ketones 1+ (Negative); Urine Nitrite Negative (Negative); Urine Protein 1+(30 mg/dL) (Negative); Urine Specific Gravity 1.018 (1.002-1.030); Urine Urobilinogen Negative (Negative)
[2023-10-09 08:29] LABS: Urine Bacteria Absent (Absent); Urine Red Blood Cell 2+(6-10/hpf) (Absent); Urine White Blood Cell Trace(0-5/hpf) (Absent)
[2023-10-09] MEDS: cefTRIAXone 1 gm/50 mL D5W 1 GM/50 ML BAG IV SCH (09:41)
[2023-10-09] MEDS: Aspirin EC 81 mg TAB.EC (enteric coated) PO SCH (09:44)
[2023-10-09] MEDS: SPIRIVA Respimat (tiotropium) 2.5 mcg/inh Inhaler INH SCH (09:48)
[2023-10-09] MEDS: CMCS:Simvastatin 10 mg TAB (NF) PO SCH (21:55)
[2023-10-09 22:00] LABS: Calcium 8.2 mg/dL (8.6-10.3); Creatinine, Serum 0.93 mg/dL (0.67-1.17); Potassium 3.9 mmol/L (3.5-5.0)
[2023-10-09 22:08] LABS: Hematocrit 28.3 % (38-53); Mean Corpuscular Hemoglobin 32.3 pg (27-33); Mean Corpuscular Hgb Conc 35.2 g/dL (31-36); Mean Corpuscular Volume 91.8 fL (80-97); Platelet Count 98 10^3/uL (150-450); Red Blood Count 3.09 10^6/uL (4.06-5.63); Red Cell Distribution Width 13.7 % (12-17); White Blood Count 6.7 10^3/uL (3.6-10.2)
[2023-10-10 07:11] LABS: ABS Lymphocytes 0.5 10^3/uL (1.0-4.8); ABS Monocytes 0.8 10^3/uL (0.0-1.1); ABS Neutrophils 4.2 10^3/uL (1.5-7.6); Hematocrit 26.8 % (38-53); Hemoglobin 9.5 g/dL (13.2-16.3); Lymphocyte % 9.7 %; Mean Corpuscular Hemoglobin 32.6 pg (27-33); Mean Corpuscular Hgb Conc 35.6 g/dL (31-36); Mean Corpuscular Volume 91.6 fL (80-97); Mean Platelet Volume 8.8 fL (7.5-11.2); Platelet Count 105 10^3/uL (150-450); Red Blood Count 2.93 10^6/uL (4.06-5.63); Red Cell Distribution Width 13.8 % (12-17); White Blood Count 5.5 10^3/uL (3.6-10.2)
[2023-10-10 07:26] LABS: Calcium 8.1 mg/dL (8.6-10.3); Creatinine, Serum 0.81 mg/dL (0.67-1.17); Potassium 3.7 mmol/L (3.5-5.0); eGFR CKD-EPI 90.2 (>60)
[2023-10-10] MEDS: cefTRIAXone 1 gm/50 mL D5W 1 GM/50 ML BAG IV SCH (08:22)
[2023-10-11] MEDS: Acetaminophen IV 1 GM/100ML 1,000 MG/100 ML BAG IV PRN (00:34)
[2023-10-11] MEDS: levETIRAcetam 1000MG IVPREMIX 1,000 MG/100 ML BAG IV SCH (01:10)
[2023-10-11] MEDS: Valproic Acid IV 375 MG in NS 0.9% 100 ml BAG 100 ML IVPB SCH (01:47)
[2023-10-12 06:19] LABS: ABS Lymphocytes 0.9 10^3/uL (1.0-4.8); ABS Monocytes 0.7 10^3/uL (0.0-1.1); ABS Neutrophils 5.2 10^3/uL (1.5-7.6); ABS Nucleated RBC 0.01 10^3/ul; Eosinophil % 0.1 %; Hematocrit 25.5 % (38-53); Hemoglobin 9.3 g/dL (13.2-16.3); Mean Corpuscular Hemoglobin 32.6 pg (27-33); Mean Corpuscular Hgb Conc 36.4 g/dL (31-36); Mean Corpuscular Volume 89.5 fL (80-97); Mean Platelet Volume 8.4 fL (7.5-11.2); Nucleated Red Blood Cells % 0.1 %/100WBC (0.0-0.8); Platelet Count 112 10^3/uL (150-450); Red Blood Count 2.85 10^6/uL (4.06-5.63); Red Cell Distribution Width 13.4 % (12-17); White Blood Count 6.8 10^3/uL (3.6-10.2)
[2023-10-12 06:26] LABS: C Reactive Protein 145.8 mg/L (<8.01); Calcium 7.9 mg/dL (8.6-10.3); Creatinine, Serum 0.71 mg/dL (0.67-1.17); Potassium 3.3 mmol/L (3.5-5.0); eGFR CKD-EPI 93.9 (>60)
[2023-10-13 06:54] LABS: Calcium 8.2 mg/dL (8.6-10.3); Creatinine, Serum 0.77 mg/dL (0.67-1.17); Potassium 2.9 mmol/L (3.5-5.0); eGFR CKD-EPI 91.6 (>60)
[2023-10-13 08:41] LABS: Albumin 3.1 g/dL (3.2-5.2)
[2023-10-13] MEDS: cefTRIAXone 1 GM Q24H (ADVAN) IVPB SCH (08:43)
[2023-10-13] MEDS: Potassium Chloride LIQUID 20 MEQ/15 ML LIQUID PO ONE (08:45)
[2023-10-13 08:52] LABS: Albumin/Globulin Ratio 1.3 (1-3); Direct Bilirubin 0.1 mg/dL (0.03-0.18); Globulin 2.3 g/dL (2-4); Indirect Bilirubin 0.3 mg/dL (0.3-1.0); Total Bilirubin 0.4 mg/dL (0.2-1.0); Total Protein 5.4 g/dL (6.4-8.9)
[2023-10-13] MEDS: Potassium Chlor 20 meq TAB.ER PO ONE (11:21)
[2023-10-13 12:38] LABS: ABS Lymphocytes 0.8 10^3/uL (1.0-4.8); ABS Monocytes 0.6 10^3/uL (0.0-1.1); ABS Neutrophils 4.7 10^3/uL (1.5-7.6); ABS Nucleated RBC 0.01 10^3/ul; Eosinophil % 0.4 %; Hematocrit 27.9 % (38-53); Hemoglobin 9.9 g/dL (13.2-16.3); Lymphocyte % 13.3 %; Mean Corpuscular Hemoglobin 31.9 pg (27-33); Mean Corpuscular Hgb Conc 35.4 g/dL (31-36); Mean Platelet Volume 8.7 fL (7.5-11.2); Nucleated Red Blood Cells % 0.2 %/100WBC (0.0-0.8); Platelet Count 155 10^3/uL (150-450); Red Cell Distribution Width 13.5 % (12-17); White Blood Count 6.2 10^3/uL (3.6-10.2)
[2023-10-13 13:23] LABS: Vitamin B12 902 pg/mL (180-914)
[2023-10-13 13:25] LABS: Folate > 20.00 ng/mL (5.90-24.80)
[2023-10-13 17:38] LABS: Calcium 8.6 mg/dL (8.6-10.3); Creatinine, Serum 0.73 mg/dL (0.67-1.17); Potassium 3.4 mmol/L (3.5-5.0); eGFR CKD-EPI 93.1 (>60)
[2023-10-14 06:04] LABS: ABS Lymphocytes 0.9 10^3/uL (1.0-4.8); ABS Monocytes 0.6 10^3/uL (0.0-1.1); ABS Neutrophils 3.5 10^3/uL (1.5-7.6); Eosinophil % 0.3 %; Hematocrit 26.2 % (38-53); Hemoglobin 9.4 g/dL (13.2-16.3); Lymphocyte % 18.1 %; Mean Corpuscular Hemoglobin 32.3 pg (27-33); Mean Corpuscular Volume 89.8 fL (80-97); Mean Platelet Volume 8.3 fL (7.5-11.2); Platelet Count 168 10^3/uL (150-450); Red Blood Count 2.92 10^6/uL (4.06-5.63); Red Cell Distribution Width 13.5 % (12-17)
[2023-10-14 06:31] LABS: Calcium 8.2 mg/dL (8.6-10.3); Creatinine, Serum 0.7 mg/dL (0.67-1.17); Magnesium 1.6 mg/dL (1.9-2.7); Potassium 3.2 mmol/L (3.5-5.0); eGFR CKD-EPI 94.3 (>60)
[2023-10-14 07:35] LABS: % Iron Saturation 17 % (15-55); .Transferrin 143 mg/dL (203-362); Iron 33 ug/dL (50-212); Total Iron Binding Capacity 200 mcg/dL (250-450); Unsaturated Iron Binding 167 ug/dL
[2023-10-14] MEDS: Potassium Chloride LIQUID 20 MEQ/15 ML LIQUID PO ONE ×2 (07:53→12:57)
[2023-10-14] MEDS: Magnesium Sulf 4 GM/100 ML IV 4,000 MG/100 ML BAG IVPB ONE (07:53)
[2023-10-14 07:55] LABS: Ferritin 411.1 ng/mL (24-336)
[2023-10-14] MEDS ORDERED: Mometasone 110 MCG MDI INH SCH (17:00)
[2023-10-14] MEDS: Mometasone 220 MCG MDI INH SCH (19:17)
[2023-10-15 06:04] LABS: Hemoglobin 9.2 g/dL (13.2-16.3); Mean Corpuscular Hemoglobin 32.1 pg (27-33); Mean Corpuscular Hgb Conc 35.6 g/dL (31-36); Mean Corpuscular Volume 90.1 fL (80-97); Mean Platelet Volume 8.3 fL (7.5-11.2); Platelet Count 189 10^3/uL (150-450); Red Blood Count 2.88 10^6/uL (4.06-5.63); Red Cell Distribution Width 13.7 % (12-17); White Blood Count 5.2 10^3/uL (3.6-10.2)
[2023-10-15 06:21] LABS: Calcium 7.9 mg/dL (8.6-10.3); Creatinine, Serum 0.66 mg/dL (0.67-1.17); Magnesium 1.9 mg/dL (1.9-2.7); Potassium 3.2 mmol/L (3.5-5.0)
[2023-10-15 06:53] LABS: ABS Basophils 0.1 10^3/uL (0.0-0.1); ABS Monocytes 0.7 10^3/uL (0.0-1.1); ABS Neutrophils 3.5 10^3/uL (1.5-7.6); Eosinophil % 0.5 %; Lymphocyte % 19.8 %
[2023-10-15] MEDS: Potassium Chlor 20 meq TAB.ER PO ONE ×2 (07:51→10:53)
[2023-10-15] MEDS ORDERED: Potassium Chlor 20 meq TAB.ER PO ONE (11:00)
[2023-10-15] MEDS: Albuterol HFA INHALER 8 gm MDI INH PRN (19:30)
[2023-10-16 06:28] LABS: Hematocrit 27.3 % (38-53); Hemoglobin 9.5 g/dL (13.2-16.3); Mean Corpuscular Hemoglobin 31.7 pg (27-33); Mean Corpuscular Hgb Conc 34.9 g/dL (31-36); Mean Corpuscular Volume 90.8 fL (80-97); Mean Platelet Volume 7.9 fL (7.5-11.2); Platelet Count 224 10^3/uL (150-450); Red Cell Distribution Width 13.8 % (12-17); White Blood Count 5.9 10^3/uL (3.6-10.2)
[2023-10-16 06:44] LABS: Calcium 8.3 mg/dL (8.6-10.3); Creatinine, Serum 0.71 mg/dL (0.67-1.17); Magnesium 1.7 mg/dL (1.9-2.7); Potassium 3.9 mmol/L (3.5-5.0); eGFR CKD-EPI 93.9 (>60)
[2023-10-16 07:56] LABS: ABS Basophils 0.1 10^3/uL (0.0-0.1); ABS Lymphocytes 1.1 10^3/uL (1.0-4.8); ABS Monocytes 0.7 10^3/uL (0.0-1.1); Eosinophil % 0.6 %; Lymphocyte % 18.4 %; Nucleated Red Blood Cells % 0.1 %/100WBC (0.0-0.8)
[2023-10-16 07:57] LABS: Acanthocytes 1+
[2023-10-16] MEDS: Magnesium Sulfate 2 gm BAG 2 GM/50 ML BAG IVPB ONE (10:16)
[2023-10-17] MEDS: Mometasone 220 MCG MDI INH SCH (19:40)
[2023-10-19 08:20] VITALS: BP 120/74
== END 2023-10-19 10:10 | disposition hospice, home (50) | DRG 189 ==
LOC: EDHOLD 01:46 → ED 01:46 → SUATTDRO 05:43 → MED 16:42 → SUATTDRO 10-10 09:00
PROVIDERS: ADMIT Internal Medicine; ATTEND Internal Medicine